=== PATIENT | male | born 1955 | race Caucasian/White ===

== ENCOUNTER 2017-06-21 19:12 | Inpatient (IN) | payer OTHER ==
[2017-06-21] MEDS ORDERED: NITROGLYCERIN SL TABS 0.4 MG TAB SUBLINGUAL STA (19:31)
[2017-06-21] MEDS ORDERED: ASPIRIN 81 MG PO STA ×2 (19:31→19:32)
[2017-06-21] MEDS ORDERED: NITROGLYCERIN SL TABS 0.4 MG TAB SUBLINGUAL PRN ×2 (19:31→21:09)
[2017-06-21] MEDS ORDERED: SODIUM CHLORIDE 0.9% 1,000 ML IV STA (19:31)
[2017-06-21] MEDS ORDERED: HEPARIN SODIUM,PORCINE 5,000 UNIT/ML 1 ML VIAL IV PRN (19:31)
[2017-06-21] MEDS ORDERED: HEPARIN SODIUM,PORCINE 5,000 UNIT/ML 1 ML VIAL IV ONE (19:31)
[2017-06-21] MEDS ORDERED: HEPARIN SODIUM,PORCINE 5,000 UNIT/ML 1 ML VIAL IV STA (19:33)
[2017-06-21] MEDS ORDERED: MORPHINE SULFATE/PF 10MG/10ML VL IVP STA (19:34)
[2017-06-21] MEDS ORDERED: ATORVASTATIN 80 MG TAB PO STA (19:34)
[2017-06-21] MEDS ORDERED: MORPHINE SULFATE/PF 10MG/10ML VL ONE (19:38)
--- NOTE | 2017-06-21 19:40 | ED ---
General Adult HPI - General Chief complaint: Chest Pain Stated complaint: Chest pain Time Seen by Provider: 06/21/17 19:31 Source: patient Mode of arrival: wheelchair Limitations: no limitations - Related Data Allergies Allergy/AdvReac Type Severity Reaction Status Date / Time No Known Allergies Allergy Verified 06/21/17 19:17 Review of Systems ROS Statement: Those systems with pertinent positive or pertinent negative responses have been documented in the HPI. ROS Other: All systems not noted in ROS Statement are negative. Past Medical History Past Medical History: Myocardial Infarction (CT) History of Any Multi-Drug Resistant Organisms: None Reported Past Surgical History: Heart Catheterization With Stent Additional Past Surgical History / Comment(s): back sx, hernia sx Past Psychological History: No Psychological Hx Reported Smoking Status: Current every day smoker Past Alcohol Use History: None Reported Past Drug Use History: None Reported General Exam Limitations: no limitations Course Vital Signs 06/21/17 06/21/17 06/21/17 19:13 19:29 19:33 Temperature 97.9 F Pulse Rate 67 65 62 Respiratory 18 18 20 Rate Blood Pressure 124/70 139/75 133/71 O2 Sat by Pulse 98 100 Oximetry Disposition Clinical Impression: ST elevation myocardial infarction (STEMI) Disposition: ADMITTED IP TO THIS HOSP Condition: Serious Referrals: Wanda Moody DO [Primary Care Provider] - 1-2 days
[2017-06-21 19:41] LABS: Basophils % (A) 0 %; Eosinophils # (A) 0.3 k/uL (0-0.7); Eosinophils % (A) 2 %; HCT 49.2 % (39.0-53.0); HGB 15.9 gm/dL (13.0-17.5); Lymphocytes # (A) 2.5 k/uL (1.0-4.8); Lymphocytes % (A) 17 %; MCH 29.4 pg (25.0-35.0); MCHC 32.4 g/dL (31.0-37.0); MCV 90.8 fL (80.0-100.0); Mean Platelet Volume 7.7; Monocytes # (A) 0.7 k/uL (0-1.0); Monocytes % (A) 5 %; Neutrophils # (A) 10.7 k/uL (1.3-7.7); Neutrophils % (A) 75 %; Platelet Count 455 k/uL (150-450); RBC 5.42 m/uL (4.30-5.90); RDW 12.7 % (11.5-15.5); WBC 14.3 k/uL (3.8-10.6)
[2017-06-21] MEDS ORDERED: HEPARIN SOD,PORK IN 0.45% NACL 25,000 UNIT in 0.45% NACL 1 500ML.BAG IV SCH (19:45)
[2017-06-21 19:47] LABS: Partial Thromboplastin Time 23.1 sec (22.0-30.0)
[2017-06-21] MEDS: MORPHINE SULFATE/PF 10MG/10ML VL IV PRN (19:48)
[2017-06-21] MEDS ORDERED: SODIUM CHLORIDE 0.9% 1,000 ML IV ONE (19:57)
[2017-06-21] MEDS ORDERED: IV FLUID CONTINUATION 900 ML IV ONE (20:00)
[2017-06-21 20:07] LABS: ALT 18 U/L (21-72); AST 27 U/L (17-59); Albumin 4.2 g/dL (3.5-5.0); Alkaline Phosphatase 87 U/L (38-126); Anion Gap 14 mmol/L; Blood Urea Nitrogen 13 mg/dL (9-20); Calcium 10.3 mg/dL (8.4-10.2); Carbon Dioxide 23 mmol/L (22-30); Chloride 105 mmol/L (98-107); Glucose 105 mg/dL (74-99); Potassium 4.1 mmol/L (3.5-5.1); Sodium 142 mmol/L (137-145); Total Bilirubin 0.5 mg/dL (0.2-1.3); Total Protein 6.9 g/dL (6.3-8.2)
[2017-06-21] MEDS ORDERED: MIDAZOLAM 2 MG/2 ML VIAL IV ONE (20:14)
[2017-06-21] MEDS ORDERED: MIDAZOLAM 2 MG/2 ML VIAL ONE (20:16)
[2017-06-21] MEDS ORDERED: LIDOCAINE 2% INJ 20 MG/ML (20 ML MDV) ONE (20:16)
[2017-06-21] MEDS ORDERED: fentaNYL (PF) 50 MCG/ML 2 ML AMP IV ONE (20:17)
[2017-06-21] MEDS ORDERED: LIDOCAINE 2% INJ 20 MG/ML SQ ONE (20:18)
[2017-06-21] MEDS ORDERED: fentaNYL (PF) 50 MCG/ML 2 ML AMP ONE (20:18)
[2017-06-21 20:19] LABS: Creatine Kinase MB 1.7 ng/mL (0.0-2.4); Troponin I 0.022 ng/mL (0.000-0.034)
--- NOTE | 2017-06-21 20:22 | XR ---
EXAMINATION: XR chest 1V portable DATE AND TIME: 06/21/2017 7:39 PM ORDERING PROVIDER: Nate Holt DO CLINICAL INDICATION: chest pain TECHNIQUE: Portable AP upright COMPARISON: None. DESCRIPTION: The lungs are clear. The pleural spaces are negative. The cardiac silhouette is not enlarged. The mediastinal and pleural silhouettes are unremarkable. The skeletal structures are intact without focal findings. The soft tissues are unremarkable. IMPRESSION: NO ACUTE PROCESS.
[2017-06-21] MEDS ORDERED: BIVALIRUDIN BOLUS 250 MG/50 ML IV ONE (20:27)
[2017-06-21] MEDS ORDERED: BIVALIRUDIN 250 MG in SODIUM CHLORIDE 0.9% 50 ML IV ONE (20:27)
[2017-06-21] MEDS ORDERED: NITROGLYCERIN 1000MCG/10ML SYRINGE INTRAARTER ONE (20:40)
[2017-06-21] MEDS ORDERED: IOHEXOL 350 MG/ML 125ML BOTTLE INJ ONE (20:50)
[2017-06-21] MEDS ORDERED: PRASUGREL 10 MG TAB PO ONE (20:51)
[2017-06-21] MEDS ORDERED: PRASUGREL 10 MG TAB ONE (20:53)
[2017-06-21] MEDS ORDERED: MAG HYDROX/AL HYDROX/SIMETH 30 ML CUP PO PRN (21:09)
[2017-06-21] MEDS ORDERED: ATROPINE SULFATE 0.1 MG/ML 10ML SYRINGE IV PRN (21:09)
[2017-06-21] MEDS ORDERED: ZOLPIDEM 5 MG TAB PO PRN (21:09)
[2017-06-21] MEDS ORDERED: RX INFO: IV CONTRAST WAS GIVEN 1 EACH MISC MISCELLANE PRN (21:09)
[2017-06-21 22:34] LABS: Glucose,Whole Blood 102 mg/dL (75-99)
[2017-06-21] MEDS: METOPROLOL TARTRATE 25 MG TAB PO SCH (23:13)
[2017-06-21] MEDS: SODIUM CHLORIDE 0.9% 1,000 ML IV SCH (23:16)
[2017-06-22 01:35] LABS: Magnesium 2.1 mg/dL (1.6-2.3)
[2017-06-22 02:14] LABS: Troponin I 0.234 ng/mL (0.000-0.034)
[2017-06-22] MEDS: MORPHINE SULFATE/PF 10MG/10ML VL IV PRN ×2 (04:32→07:50)
--- NOTE | 2017-06-22 05:22 | CC ---
CARDIAC CATHETERIZATION REPORT DATE OF SERVICE: 06/21/2017. PROCEDURE PERFORMED: 1. Left heart catheterization and coronary angiography. 2. PTCA and stenting of left anterior descending coronary artery performed in the setting of an acute ST-elevation UT with reperfusion accomplished in 56 minutes since arrival to the emergency room. PERFORMED BY: Dr. Afia Hercules. ANESTHESIA: Moderate conscious sedation time was 41 minutes with a combination of Versed and Benadryl and patient's oxygen saturation was monitored very closely and his EKG and vital signs were monitored closely. CLINICAL INFORMATION: Mr. Luis Astudillo is a patient with a known CAD with LAD PCI in 2002. 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 EKG revealed ST elevation anteriorly, advised prompt cardiac catheterization. Risks, benefits, options explained to the patient and was brought in for the procedure immediately. PROCEDURE NOTE: Under local anesthesia and strict aseptic precautions, a 6-Djiboutian introducer was placed in the right femoral artery. I started with the left standard Satish guide catheter and performed coronary angiography and noted that the LAD had a subtotal lesion in the midportion. There was a restenoses within the stented segment with haziness and thrombus and beyond the stent there was a 99% stenosis after a diagonal branch. The entire LAD was diffusely diseased throughout. I proceeded with PCI of the LAD first and then I performed a coronary angiography of the right coronary then checked LV pressures but did not perform an LV-gram. PCI DETAILS: Standard left Satish guide catheter was used to cannulate the left coronary artery. A whisper wire was used to cross the lesion. Predilatation was performed with a 2.5 caliber 20 mm long Trek balloon. I deployed a 23 mm long 3.0 caliber Xience stent at 11-12 atmospheres. Excellent angiographic result was achieved. Patient was completely pain free with significant improvement in EKG. I checked LV pressures and also did angiography of the right coronary artery. The sheath was taken out and Angio-Seal device used to secure hemostasis and he was sent to the room in a stable condition. Results were discussed with the patient and family members. CARDIAC CATHETERIZATION FINDINGS: Left ventricle end-diastolic pressure was about 14 mmHg and there was no significant gradient across aortic valve. CORONARY ANGIOGRAPHY FINDINGS: Right coronary artery: This is a large dominant vessel with a moderate to heavy calcification. The midportion is a 30% to 40% narrowing distally bifurcates into PDA and PLV, both of which have minor diffuse disease but no critical stenosis. RCA is a dominant vessel. Left main coronary artery: This is a short patent vessel, free of significant disease that immediately bifurcates into LAD and circumflex. Left main itself is small and disease-free. Left anterior descending coronary artery: This is a culprit vessel. At the site of previous stenting, there was 80% stenosis and immediately beyond the stent there was a 99% stenosis with thrombus. There is a good-sized diagonal branch that comes off which has some disease in the origin, but no significant stenosis. The entire LAD beyond the 95% stenosis is diffusely diseased, has multiple areas of narrowing of anywhere from 40- 55%. The vessel runs all the way to the apex, gives off septal branches. LAD, therefore is a culprit lesion with a 95% mid lesion and proximal LAD that was stented has a in-stent restenosis of 80-90%. Left posterior circumflex coronary artery: Left posterior circumflex coronary artery is technically nondominant vessel that gives off one obtuse marginal that runs laterally. This obtuse marginal has a long area of diffuse disease. The midportion of this disease segment is at least 70%. Beyond it also there is some narrowing. The vessel is of large distribution, but diffuse disease. The branch in the AV groove also has a diffuse disease throughout with multiple areas of anywhere from 50-70% narrowing throughout. The circumflex is therefore nondominant. Obtuse marginal has significant disease, may require staged intervention. Left ventriculogram was not performed. PCI was performed on the proximal and mid LAD with a 23 mm long 3.0 caliber drug- eluting Xience stent. Excellent angiographic result was achieved, but the distal and mid LAD beyond the stented segment has diffuse disease throughout. Results were discussed with the patient and family. He was sent to the room in a stable condition. MMODL / IJN: [id number] /
--- NOTE | 2017-06-22 05:28 | LTR ---
DATE OF SERVICE: 06/21/[address] Moody: Thank you for the opportunity to participate in the care of Mr. Astudillo. Please find enclosed my detailed cardiac cath report for your records. This gentleman presented with acute anterior MT and we accomplished reperfusion within 56 minutes. He has an excellent angiographic result, but he has diffusely diseased vessel. I am recommending that we continue aspirin and Plavix without interruption and smoking cessation and lipid-lowering strategies. Thank you for your referral and please call for questions. With kindest regards, Sincerely, JONAS / LAKISHA: [id number] /
--- NOTE | 2017-06-22 05:34 | CONS ---
CONSULTATION Mr. Astudillo is a 62-year-old gentleman a patient of Dr. Moody who saw Dr. Cody Brown 5 years ago. He is known to have a prior anterior UT in 2002, underwent stenting of LAD. The details are not available, but his stent card had seen of something that suggested possibly a bare metal stent of 3.5 caliber. However, this gentleman has not seen a threshing operator, has been smoking heavily at least 1 pack a day. Has stopped his statin medications. Takes an aspirin and Sheffield for back pain. He came into the hospital with chest pain that started almost 40 minutes before his arrival to the emergency room. Pain was in the chest, radiating to both upper extremities with diaphoresis, suggestive of acute ischemic syndrome. EKG revealed anterior ST elevation with precordial ST depression. A STEMI alert was called and I was notified. I saw the patient in the emergency room and noted that he was in distress, but hemodynamically stable. I explained to him that we will proceed with urgent cardiac cath and possible intervention. PAST MEDICAL HISTORY: 1. CAD, possible UT, details unclear stenting of LAD in . 2. Hypertension. 3. Hypercholesterolemia. 4. Smoking and possible COPD. ALLERGIES: None. MEDICATIONS: [place], morphine tablets, Zyrtec, aspirin 81 mg daily. SOCIAL HISTORY: Smokes more than 1 pack a day. Does not consume alcohol on a regular basis. PHYSICAL EXAMINATION: Blood pressure 130/80, pulse rate is about 68 per minute. HEENT: Unremarkable. Fundus was not examined by me. Neck is supple. There is no JVD. I do not hear a carotid bruit. Heart exam reveals S1, S2 without significant murmurs. Lungs reveal diminished air entry. Abdomen is soft, nontender. Lower extremities reveal palpable pulses. No edema. Central nervous system is normal. EKG revealed sinus mechanism with anterior ST elevation and precordial ST depression suggestive of an acute anterior ST-elevation UT. IMPRESSION: 1. Acute anterior ST-elevation myocardial infarction. 2. History of prior PCI of LAD, details unclear. 3. History of smoking. RECOMMENDATIONS: I recommended prompt cardiac cath and PCI and took him to the senior laboratory technician immediately. MMODL / IJN: [id number] /
[2017-06-22] MEDS ORDERED: ASPIRIN 325 MG TAB PO SCH (09:00)
[2017-06-22] MEDS: CLOPIDOGREL 75 MG TAB PO SCH (09:07)
[2017-06-22] MEDS: ASPIRIN 81 MG PO SCH (09:07)
[2017-06-22] MEDS: LISINOPRIL 5 MG TAB PO SCH (09:08)
[2017-06-22 09:15] LABS: Basophils % (A) 0 %; Eosinophils # (A) 0.2 k/uL (0-0.7); Eosinophils % (A) 2 %; HCT 43.6 % (39.0-53.0); HGB 14.2 gm/dL (13.0-17.5); Lymphocytes # (A) 1.8 k/uL (1.0-4.8); Lymphocytes % (A) 19 %; MCHC 32.6 g/dL (31.0-37.0); MCV 92.2 fL (80.0-100.0); Mean Platelet Volume 7.7; Monocytes # (A) 0.4 k/uL (0-1.0); Monocytes % (A) 4 %; Neutrophils # (A) 6.8 k/uL (1.3-7.7); Neutrophils % (A) 74 %; Platelet Count 330 k/uL (150-450); RBC 4.73 m/uL (4.30-5.90); RDW 12.9 % (11.5-15.5); WBC 9.2 k/uL (3.8-10.6)
[2017-06-22 09:33] LABS: Anion Gap 9 mmol/L; Blood Urea Nitrogen 11 mg/dL (9-20); Calcium 9.2 mg/dL (8.4-10.2); Carbon Dioxide 25 mmol/L (22-30); Chloride 109 mmol/L (98-107); Cholesterol 172 mg/dL (<200); Glucose 95 mg/dL (74-99); HDL Cholesterol 44 mg/dL (40-60); LDL Cholesterol,Calculated 116 mg/dL (0-99); Potassium 4.3 mmol/L (3.5-5.1); Sodium 143 mmol/L (137-145); Triglycerides 58 mg/dL (<150)
[2017-06-22 09:59] LABS: Creatine Kinase MB 2.7 ng/mL (0.0-2.4); Troponin I 0.212 ng/mL (0.000-0.034)
[2017-06-22 10:55] VITALS: BMI 24.0
--- NOTE | 2017-06-22 12:45 | ECHOF ---
Referral Reason:Acute Ant STEMI s/P LAD PCI MEASUREMENTS -------- HEIGHT: 182.9 cm WEIGHT: 78.0 kg BP: 122/64 IVSd: 0.9 cm (0.6 - 1.1) LVIDd: 3.6 cm (3.9 - 5.3) LVPWd: 1.0 cm (0.6 - 1.1) IVSs: 1.7 cm LVIDs: 1.6 cm LVPWs: 1.6 cm Ao Diam: 3.8 cm (2.0 - 3.7) AV Cusp: 2.3 cm (1.5 - 2.6) LA Diam: 4.3 cm (2.7 - 3.8) MV EXCURSION: 23.254 mm (> 18.000) MV EF SLOPE: 93 mm/s (70 - 150) EPSS: 0.2 cm MV E Miguel: 1.03 m/s MV DecT: 237 ms MV A Miguel: 0.73 m/s MV E/A Ratio: 1.42 AR PHT: 173 ms RAP: 5.00 mmHg RVSP: 13.69 mmHg FINDINGS -------- Sinus rhythm. Resting bradycardia (HR<60bpm). This was a technically adequate study. The left ventricular size is normal. Left ventricular wall thickness is normal. Overall left vent ricular systolic function is low-normal with, an EF between 50 - 55 %. The right ventricle is normal in size and function. The left atrium is mildly dilated. The right atrium is normal in size. Trace amount of aortic regurgitation. There is trace mitral regurgitation. Trace tricuspid regurgitation present. The right ventricular systolic pressure, as measured by Dopp ler, is 13.69mmHg. Pulmonic valve appears structurally normal. The aortic root is mildy dilated. The pericardium is normal. CONCLUSIONS -------- 1. Sinus rhythm. 2. Resting bradycardia (HR<60bpm). 3. This was a technically adequate study. 4. The left ventricular size is normal. 5. Left ventricular wall thickness is normal. 6. Overall left ventricular systolic function is low-normal with, an EF between 50 - 55 %. 7. The right ventricle is normal in size and function. 8. The left atrium is mildly dilated. 9. The right atrium is normal in size. 10. Trace amount of aortic regurgitation. 11. There is trace mitral regurgitation. 12. Trace tricuspid regurgitation present. 13. The right ventricular systolic pressure, as measured by Doppler, is 13.69mmHg. 14. Pulmonic valve appears structurally normal. 15. The aortic root is mildy dilated. 16. The pericardium is normal. WOOD GRINDER: Samreen Martini RDCS
--- NOTE | 2017-06-22 13:37 | P.HPIM ---
History of Present Illness 86-year-old pleasant gentleman came in with compensative chest pain found to have ST elevation microinfarction patient underwent cardiac catheterization and stenting of LAD patient had normal ejection fraction patient can use to smoke counseling regarding smoking cessation was provided and patient will be transferred out of ICU. Chest pain completely resolved denied any shortness of breath orthopnea or PND Review of Systems REVIEW OF SYSTEMS: CONSTITUTIONAL: No fever, no malaise, no fatigue. HEENT: No recent visual problems or hearing problems. Denied any sore throat. CARDIOVASCULAR: No c orthopnea, PND, no palpitations, no syncope. PULMONARY: No shortness of breath, no cough, no hemoptysis. GASTROINTESTINAL: No diarrhea, no nausea, no vomiting, no abdominal pain. Normoactive bowel sounds. NEUROLOGICAL: No headaches, no weakness, no numbness. HEMATOLOGICAL: Denies any bleeding or petechiae. GENITOURINARY: Denies any burning micturition, frequency, or urgency. MUSCULOSKELETAL/RHEUMATOLOGICAL: Denies any joint pain, swelling, or any muscle pain. ENDOCRINE: Denies any polyuria or polydipsia. The rest of the 14-point review of systems is negative. Past Medical History Past Medical History: Myocardial Infarction (DE) Last Myocardial Infarction Date:: 2002 History of Any Multi-Drug Resistant Organisms: None Reported Past Surgical History: Back Surgery, Heart Catheterization With Stent, Hernia Repair, Uterine Ablation Additional Past Surgical History / Comment(s): back sx, hernia sx Past Anesthesia/Blood Transfusion Reactions: No Reported Reaction Date of Last Stent Placement:: 2002 Past Psychological History: No Psychological Hx Reported Smoking Status: Current every day smoker Past Alcohol Use History: None Reported Past Drug Use History: None Reported - Past Family History Father Additional Family Medical History / Comment(s): CABG X3 Medications and Allergies Home Medications Medication Instructions Recorded Confirmed Type Aspirin EC [Ecotrin Low Dose] 81 mg PO DAILY PRN 06/21/17 06/21/17 History Cetirizine HCl [Zyrtec] 10 mg PO DAILY 06/21/17 06/21/17 History HYDROcodone/APAP 10-325MG [[place] 1 tab PO Q6H PRN 06/22/17 06/22/17 History 10-325] Morphine Sulfate ER [Ms Contin 30 mg PO Q8H 06/22/17 06/22/17 History 30Mg] Allergies Allergy/AdvReac Type Severity Reaction Status Date / Time No Known Allergies Allergy Verified 06/21/17 20:06 Physical Exam Vitals: Vital Signs Temp Pulse Resp BP Pulse Ox 06/22/17 13:00 58 L 21 140/62 96 06/22/17 12:30 47 L 16 114/73 95 06/22/17 12:00 98.6 F 38 L 25 H 112/57 96 06/22/17 11:00 39 L 12 109/58 95 06/22/17 10:00 33 L 19 146/53 95 06/22/17 09:00 46 L 135/64 96 06/22/17 08:00 98.7 F 43 L 13 138/72 97 06/22/17 07:00 38 L 14 148/67 98 06/22/17 06:00 47 L 15 122/64 97 06/22/17 05:30 45 L 13 124/61 97 06/22/17 05:00 41 L 11 L 119/65 98 06/22/17 04:30 44 L 14 128/70 98 06/22/17 04:00 98.4 F 38 L 15 148/58 98 06/22/17 03:30 41 L 13 125/62 98 06/22/17 03:00 43 L 12 144/60 98 06/22/17 02:45 38 L 13 119/61 99 06/22/17 02:30 42 L 11 L 131/56 98 06/22/17 02:15 44 L 12 104/60 98 06/22/17 02:00 42 L 11 L 125/59 98 06/22/17 01:45 43 L 14 113/59 97 06/22/17 01:30 42 L 15 112/54 97 06/22/17 01:15 43 L 14 113/56 98 06/22/17 01:00 49 L 17 99/63 98 06/22/17 00:45 43 L 13 109/59 98 06/22/17 00:40 44 L 15 109/59 98 06/22/17 00:30 42 L 28 H 106/53 98 06/22/17 00:20 41 L 11 L 101/56 98 06/22/17 00:10 44 L 10 L 101/56 98 06/22/17 00:00 41 L 13 113/57 98 06/21/17 23:50 49 L 12 101/54 96 06/21/17 23:40 42 L 10 L 101/54 96 06/21/17 23:30 45 L 16 104/58 95 06/21/17 23:20 46 L 15 116/57 97 06/21/17 23:10 48 L 17 116/57 97 06/21/17 23:02 46 L 14 99/58 97 06/21/17 23:00 47 L 12 99/58 97 06/21/17 22:50 53 L 17 97/54 97 06/21/17 22:40 98.6 F 53 L 26 H 97/54 97 06/21/17 20:05 97.2 F L 59 L 20 139/67 99 06/21/17 20:00 56 L 20 122/58 06/21/17 19:55 60 18 120/61 99 06/21/17 19:51 62 18 130/73 98 06/21/17 19:48 47 L 06/21/17 19:46 67 18 133/60 100 06/21/17 19:38 66 20 131/80 99 06/21/17 19:33 62 20 133/71 100 06/21/17 19:29 65 18 139/75 06/21/17 19:13 97.9 F 67 18 124/70 98 Intake and Output 06/21/17 06/22/17 06/22/17 22:59 06:59 14:59 Intake Total 191.13 675 450 Output Total 1225 825 Balance 191.13 -550 -375 Intake: IV 191.13 675 450 Sodium Chloride 0.9% 1, 675 450 000 ml @ 75 mls/hr IV . [id number] [facility] Rx#:[id number] Output: Urine 1225 825 Other: Voiding Method Urinal Toilet Urinal # Voids 0 1 Weight 78.4 kg 78.3 kg 78.3 kg PHYSICAL EXAMINATION: GENERAL: The patient is alert and oriented x3, not in any acute distress. Well developed, well nourished. HEENT: Pupils are round and equally reacting to light. EOMI. No scleral icterus. No conjunctival pallor. Normocephalic, atraumatic. No pharyngeal erythema. No thyromegaly. CARDIOVASCULAR: S1 and S2 present. No murmurs, rubs, or gallops. PULMONARY: Chest is clear to auscultation, no wheezing or crackles. ABDOMEN: Soft, nontender, nondistended, normoactive bowel sounds. No palpable organomegaly. MUSCULOSKELETAL: No joint swelling or deformity. EXTREMITIES: No cyanosis, clubbing, or pedal edema. NEUROLOGICAL: Gross neurological examination did not reveal any focal deficits. SKIN: No rashes. Results CBC & Chem 7: 06/22/17 08:50 06/22/17 08:50 Labs: Abnormal Lab Results - Last 24 Hours (Table) 06/21/17 06/21/17 06/21/17 Range/Units 19:30 19:30 19:30 WBC 14.3 H (3.8-10.6) k/uL Plt Count 455 H (150-450) k/uL Neutrophils # 10.7 H (1.3-7.7) k/uL Chloride (98-107) mmol/L Creatinine (0.66-1.25) mg/dL Glucose 105 H (74-99) mg/dL POC Glucose (mg/dL) (75-99) mg/dL Calcium 10.3 H (8.4-10.2) mg/dL ALT 18 L (21-72) U/L Total Creatine Kinase 184 H (55-170) U/L CK-MB (CK-2) (0.0-2.4) ng/mL Troponin I (0.000-0.034) ng/mL LDL Cholesterol, Calc (0-99) mg/dL 06/21/17 06/22/17 06/22/17 Range/Units 22:32 01:06 08:50 WBC (3.8-10.6) k/uL Plt Count (150-450) k/uL Neutrophils # (1.3-7.7) k/uL Chloride (98-107) mmol/L Creatinine (0.66-1.25) mg/dL Glucose (74-99) mg/dL POC Glucose (mg/dL) 102 H (75-99) mg/dL Calcium (8.4-10.2) mg/dL ALT (21-72) U/L Total Creatine Kinase (55-170) U/L CK-MB (CK-2) 2.7 H* (0.0-2.4) ng/mL Troponin I 0.234 H* 0.212 H* (0.000-0.034) ng/mL LDL Cholesterol, Calc (0-99) mg/dL 06/22/17 Range/Units 08:50 WBC (3.8-10.6) k/uL Plt Count (150-450) k/uL Neutrophils # (1.3-7.7) k/uL Chloride 109 H (98-107) mmol/L Creatinine 0.64 L (0.66-1.25) mg/dL Glucose (74-99) mg/dL POC Glucose (mg/dL) (75-99) mg/dL Calcium (8.4-10.2) mg/dL ALT (21-72) U/L Total Creatine Kinase (55-170) U/L CK-MB (CK-2) (0.0-2.4) ng/mL Troponin I (0.000-0.034) ng/mL LDL Cholesterol, Calc 116 H (0-99) mg/dL Thrombosis Risk Factor Assmnt - Choose All That Apply Any of the Below Risk Factors Present?: Yes Each Factor Represents 1 point: Acute DE, Medical pt on bed rest Each Risk Factor Represents 2 Points: Age 61-74 years Thrombosis Risk Factor Assessment Total Risk Factor Score: 4 Thrombosis Risk Factor Assessment Level: Moderate Risk Assessment and Plan Plan: -ST elevation microinfarction patient is status post cardiac catheterization and stenting of LAD. Patient is on dual antiplatelet therapy beta chari, statin. -Continue recording use: Counseling was provided. -Hyperlipidemia -Hypertension
--- NOTE | 2017-06-22 13:53 | PN ---
PROGRESS NOTE This is a 62-year-old gentleman who was admitted to hospital with acute anteroseptal myocardial infarction. Underwent cardiac catheterization and angioplasty by Dr. Victorina Hercules. Patient had stenting of the LAD. This morning he is doing well and is free of symptoms. Heart rate is slow, but he is in sinus rhythm. Blood pressure is normal. An echocardiogram on him shows normal LV systolic function with an ejection fraction of 50% to 55%. PHYSICAL EXAM: Heart rate is 46 beats per minute, blood pressure is 130/64, respiratory rate is 18. Chest exam reveals good air entry bilaterally. Heart exam reveals first and second heart sounds. No gallop. Abdomen is soft. Exam of extremities did not reveal edema. Peripheral pulses are felt. Labs showed that the troponin is 0.02, 0.2, 0.2, hemoglobin is normal at 14.2, creatinine is 0.6. Echo shows normal LV function. ASSESSMENT: Acute anterior wall myocardial infarction, status post catheterization and angioplasty of left anterior descending artery. PLAN: Patient is doing well. He will continue the aspirin, Lipitor, Plavix, Zestril, Lopressor. I will move him out to telemetry, ambulate him, hopefully can be discharged home over the next 1 to 2 days as his LV function is normal. I think we intervened in an expeditious way. JONAS / NELAN: [id number] /
[2017-06-22] MEDS: METOPROLOL TARTRATE 25 MG TAB PO SCH ×2 (14:07→20:39)
[2017-06-22] MEDS: MORPHINE SULFATE ER 30 MG TABLET PO SCH ×2 (14:09→22:28)
[2017-06-22] MEDS: HYDROcodone/APAP 10-325MG 1 EACH TAB PO PRN ×2 (14:12→20:39)
[2017-06-22] MEDS: SODIUM CHLORIDE 0.9% 1,000 ML IV SCH (17:22)
[2017-06-22] MEDS ORDERED: ATORVASTATIN 80 MG TAB PO SCH (21:00)
[2017-06-23] MEDS: HYDROcodone/APAP 10-325MG 1 EACH TAB PO PRN ×2 (03:27→09:25)
[2017-06-23 05:38] LABS: Basophils % (A) 0 %; Eosinophils # (A) 0.2 k/uL (0-0.7); Eosinophils % (A) 3 %; HCT 45.1 % (39.0-53.0); HGB 14.3 gm/dL (13.0-17.5); Lymphocytes # (A) 1.9 k/uL (1.0-4.8); Lymphocytes % (A) 22 %; MCH 29.2 pg (25.0-35.0); MCHC 31.6 g/dL (31.0-37.0); MCV 92.5 fL (80.0-100.0); Mean Platelet Volume 7.8; Monocytes # (A) 0.4 k/uL (0-1.0); Monocytes % (A) 5 %; Neutrophils # (A) 5.9 k/uL (1.3-7.7); Neutrophils % (A) 69 %; Platelet Count 313 k/uL (150-450); RBC 4.88 m/uL (4.30-5.90); RDW 12.9 % (11.5-15.5); WBC 8.5 k/uL (3.8-10.6)
[2017-06-23 05:51] LABS: Anion Gap 9 mmol/L; Blood Urea Nitrogen 12 mg/dL (9-20); Calcium 9.6 mg/dL (8.4-10.2); Carbon Dioxide 24 mmol/L (22-30); Chloride 106 mmol/L (98-107); Glucose 89 mg/dL (74-99); Potassium 4.2 mmol/L (3.5-5.1); Sodium 139 mmol/L (137-145)
[2017-06-23] MEDS: MORPHINE SULFATE ER 30 MG TABLET PO SCH ×2 (06:15→14:35)
[2017-06-23] MEDS: LISINOPRIL 5 MG TAB PO SCH (09:26)
[2017-06-23] MEDS: CLOPIDOGREL 75 MG TAB PO SCH (09:26)
[2017-06-23] MEDS: ASPIRIN 81 MG PO SCH (09:26)
[2017-06-23] MEDS: METOPROLOL TARTRATE 25 MG TAB PO SCH (09:26)
--- NOTE | 2017-06-23 12:23 | P.DS ---
Providers Date of admission: 06/21/17 19:31 Attending physician: Aureliano Garzon Consults: 06/21/17 19:31 Consult Physician Urgent Consulting Provider: Ike Hercules Consult Reason/Comments: stemi Do you want consulting provider notified?: Yes 06/21/17 21:10 Consult Physician Routine Consulting Provider: [facility] Consult Reason/Comments: Post Interventional patient Do you want consulting provider notified?: Already Contacted Primary care physician: Wanda Moody [facility] Course: Patient was admitted for acute myocardial infarction patient underwent cardiac catheterization and stenting of LAD. Please refer to my dictation of H&P from yesterday for further details and patient was mildly bradycardic because of which metoprolol dose is being decreased and patient is cleared for discharge from cardiology perspective and will be discharged today. PHYSICAL EXAMINATION: GENERAL: The patient is alert and oriented x3, not in any acute distress. Well developed, well nourished. HEENT: Pupils are round and equally reacting to light. EOMI. No scleral icterus. No conjunctival pallor. Normocephalic, atraumatic. No pharyngeal erythema. No thyromegaly. CARDIOVASCULAR: S1 and S2 present. No murmurs, rubs, or gallops. PULMONARY: Chest is clear to auscultation, no wheezing or crackles. ABDOMEN: Soft, nontender, nondistended, normoactive bowel sounds. No palpable organomegaly. MUSCULOSKELETAL: No joint swelling or deformity. EXTREMITIES: No cyanosis, clubbing, or pedal edema. NEUROLOGICAL: Gross neurological examination did not reveal any focal deficits. SKIN: No rashes. Patient Condition at Discharge: Serious Plan - Discharge Summary Discharge Rx Participant: Yes New Discharge Prescriptions: New Atorvastatin [Lipitor] 80 mg PO HS #30 tab Clopidogrel [Plavix] 75 mg PO DAILY #30 tab Lisinopril [Zestril] 5 mg PO DAILY #30 tab Metoprolol Tartrate [Lopressor] 12.5 mg PO BID #60 tab Nitroglycerin Sl Tabs [Nitrostat] 0.4 mg SUBLINGUAL Q5M PRN #60 tab PRN Reason: Chest Pain Continue Cetirizine HCl [Zyrtec] 10 mg PO DAILY Aspirin EC [Ecotrin Low Dose] 81 mg PO DAILY PRN PRN Reason: Pain Morphine Sulfate ER [Ms Contin] 30 mg PO Q8H HYDROcodone/APAP 10-325MG [[place] 10-325] 1 tab PO Q6H PRN PRN Reason: Pain Discharge Medication List Aspirin EC [Ecotrin Low Dose] 81 mg PO DAILY PRN 06/21/17 [History] Cetirizine HCl [Zyrtec] 10 mg PO DAILY 06/21/17 [History] HYDROcodone/APAP 10-325MG [[place] 10-325] 1 tab PO Q6H PRN 06/22/17 [History] Morphine Sulfate ER [Ms Contin] 30 mg PO Q8H 06/22/17 [History] Atorvastatin [Lipitor] 80 mg PO HS #30 tab 06/23/17 [Rx] Clopidogrel [Plavix] 75 mg PO DAILY #30 tab 06/23/17 [Rx] Lisinopril [Zestril] 5 mg PO DAILY #30 tab 06/23/17 [Rx] Metoprolol Tartrate [Lopressor] 12.5 mg PO BID #60 tab 06/23/17 [Rx] Nitroglycerin Sl Tabs [Nitrostat] 0.4 mg SUBLINGUAL Q5M PRN #60 tab 06/23/17 [Rx ] Follow up Appointment(s)/Referral(s): Wanda Moody DO [Primary Care Provider] - 3 Days Rick Deleon MD [STAFF PHYSICIAN] - 1 Week Discharge Disposition: HOME SELF-CARE
--- NOTE | 2017-06-23 14:04 | PN ---
PROGRESS NOTE Luis is 62-year-old gentleman who was admitted to hospital with myocardial infarction, underwent cardiac catheterization, angioplasty. He is doing well and is free of symptoms. His echo shows normal LV function. Troponin was only mildly elevated. He wishes to go home. He is stable, free of symptoms. Currently on aspirin, Lipitor, Plavix, Lopressor and sublingual nitroglycerin. PHYSICAL EXAM: Comfortable at rest, vital signs are heart rate is slow and has sinus bradycardia with heart rate of 42 beats per minute. Blood pressure is 170/79, O2 sat is 98%. There is no jugular venous distention. Chest exam reveals good air entry bilaterally. Heart exam reveals first and second heart sounds. No gallop. Abdomen is soft. Exam of extremities did not reveal any edema. Peripheral pulses are felt. LABS: Show that the hemoglobin is 14.3, platelet count is 313. Creatinine is 0.6. ASSESSMENT: 1. Acute anterior wall myocardial infarction status post catheterization and angioplasty. The patient is doing well. 2. Sinus bradycardia. PLAN: Patient is doing well. He will be discharged home. We will send him home on a very small dose of metoprolol. He will follow up with Dr. Hercules next week. MMODL / IJN: [id number] /
[2017-06-23 14:26] VITALS: BP 120/69; PULSE 52; RESP 18; TEMP 98
[2017-06-23] MEDS ORDERED: METOPROLOL TARTRATE 12.5 MG TAB PO SCH (21:00)
== END 2017-06-23 15:28 | disposition home or self-care (01) | DRG 247 ==
LOC: EC 19:12 → 6ICU 19:31
PROVIDERS: ADMIT Hospitalist; ATTEND Hospitalist
PROC: B2111ZZ Fluoroscopy of Multiple Coronary Arteries using Low Osmolar Contrast (ICD-10-PCS; principal; 2017-06-21 20:01)
PROC: 4A023N7 Measurement of Cardiac Sampling and Pressure, Left Heart, Percutaneous Approach (ICD-10-PCS; principal; 2017-06-21 20:01)
PROC: 027034Z Dilation of Coronary Artery, One Artery with Drug-eluting Intraluminal Device, Percutaneous Approach (ICD-10-PCS; principal; 2017-06-21 20:01)
DX: I21.09 ST elevation (STEMI) myocardial infarction involving other coronary artery of anterior wall (principal); T82.855A Stenosis of coronary artery stent, initial encounter; E78.00 Pure hypercholesterolemia, unspecified; E78.5 Hyperlipidemia, unspecified; F17.210 Nicotine dependence, cigarettes, uncomplicated; I10 Essential (primary) hypertension; I25.10 Atherosclerotic heart disease of native coronary artery without angina pectoris; I25.2 Old myocardial infarction; Y83.1 Surgical operation with implant of artificial internal device as the cause of abnormal reaction of the patient, or of later complication, without mention of misadventure at the time of the procedure; Z79.82 Long term (current) use of aspirin; Z79.891 Long term (current) use of opiate analgesic; Z79.899 Other long term (current) drug therapy; R00.1 Bradycardia, unspecified
CPT/HCPCS: 36415; 71045; 80048; 80053; 80061; 82550; 82553; 83690; 83735; 84484; 85025; 85610; 85730; 93005; 93306; 93458; 96374; 96375; 99285

== ENCOUNTER → 2017-07-03 | Outpatient (CLI) | payer OTHER ==
[2017-07-03 13:20] LABS: HCT 44.2 % (39.0-53.0); HGB 14.9 gm/dL (13.0-17.5); MCH 30.4 pg (25.0-35.0); MCHC 33.8 g/dL (31.0-37.0); MCV 89.8 fL (80.0-100.0); Mean Platelet Volume 7.4; Platelet Count 379 k/uL (150-450); RBC 4.92 m/uL (4.30-5.90); RDW 12.1 % (11.5-15.5); WBC 9.2 k/uL (3.8-10.6)
[2017-07-03 13:38] LABS: Anion Gap 14 mmol/L; Blood Urea Nitrogen 17 mg/dL (9-20); Carbon Dioxide 27 mmol/L (22-30); Chloride 99 mmol/L (98-107); Potassium 4.8 mmol/L (3.5-5.1); Sodium 140 mmol/L (137-145)
== END | disposition home or self-care (01) ==
LOC: LABWHC1 12:57
PROVIDERS: ATTEND Internal Medicine Interventional Cardiology
DX: Z01.812 Encounter for preprocedural laboratory examination (principal); I25.10 Atherosclerotic heart disease of native coronary artery without angina pectoris
CPT/HCPCS: 36415; 80051; 82565; 84520; 85027

== ENCOUNTER 2017-07-06 07:44 | Day surgery (SDC) | payer OTHER ==
[2017-07-03 14:54] VITALS: BMI 23.7
[~2017-07-06 07:44] MED LIST: ALPRAZolam 0.25 MG TAB PO PRN; ALPRAZolam 0.5 MG TAB PO PRN; ASPIRIN 325 MG TAB PO STA; NITROGLYCERIN SL TABS 0.4 MG TAB SUBLINGUAL PRN; SODIUM CHLORIDE 0.9% 1,000 ML in EMPTY BAG 1 BAG IV ONE
[2017-07-06] MEDS ORDERED: MIDAZOLAM 2 MG/2 ML VIAL ONE (08:26)
[2017-07-06] MEDS ORDERED: diphenhydrAMINE 50 MG/ML 1 ML VIAL ONE (08:26)
[2017-07-06] MEDS ORDERED: LIDOCAINE 2% INJ 20 MG/ML (20 ML MDV) ONE (08:26)
[2017-07-06] MEDS ORDERED: diphenhydrAMINE 50 MG/ML 1 ML VIAL IVP ONE (09:10)
[2017-07-06] MEDS ORDERED: MIDAZOLAM 2 MG/2 ML VIAL IVP ONE ×2 (09:48)
[2017-07-06] MEDS ORDERED: LIDOCAINE 2% INJ 20 MG/ML SQ ONE (09:49)
[2017-07-06] MEDS: NITROGLYCERIN 1000MCG/10ML SYRINGE INTRACORON ONE ×2 (09:57→10:12)
[2017-07-06] MEDS ORDERED: BIVALIRUDIN 250 MG in SODIUM CHLORIDE 0.9% 50 ML IV ONE (10:01)
[2017-07-06] MEDS ORDERED: BIVALIRUDIN BOLUS 250 MG/50 ML IV ONE (10:01)
[2017-07-06] MEDS ORDERED: IOPAMIDOL-370 100ML BTL INJ ONE ×2 (10:11→10:24)
[2017-07-06] MEDS ORDERED: CLOPIDOGREL 75 MG TAB ONE (10:25)
[2017-07-06] MEDS ORDERED: CLOPIDOGREL 75 MG TAB PO ONE (10:27)
[2017-07-06] MEDS ORDERED: MAG HYDROX/AL HYDROX/SIMETH 30 ML CUP PO PRN (10:35)
[2017-07-06] MEDS ORDERED: ATROPINE SULFATE 0.1 MG/ML 10ML SYRINGE IV PRN (10:35)
[2017-07-06] MEDS ORDERED: NITROGLYCERIN SL TABS 0.4 MG TAB SUBLINGUAL PRN (10:35)
[2017-07-06] MEDS ORDERED: ZOLPIDEM 5 MG TAB PO PRN (10:35)
[2017-07-06] MEDS ORDERED: RX INFO: IV CONTRAST WAS GIVEN 1 EACH MISC MISCELLANE PRN (10:35)
[2017-07-06] MEDS: SODIUM CHLORIDE 0.9% 1,000 ML IV SCH (10:40)
--- NOTE | 2017-07-06 11:03 | PTCA ---
PERCUTANEOUSTRANS CORORONARY ANGIOGRAPHY DATE OF SERVICE: 07/06/2017 PROCEDURE: PTCA and stenting of circumflex marginal coronary artery with a drug-eluting stent. Moderate conscious sedation time was about 45 minutes with a combination of Benadryl and Versed. Patient's oxygen saturation, vital signs and EKG were monitored closely. CLINICAL INFORMATION: Mr. Luis Astudillo is a 62-year-old gentleman with a known history of CAD. About 2 weeks ago, he presented with acute anterior ID, underwent and underwent stenting of LAD. He was advised staged intervention of circumflex, which had significant disease. RCA was dominant and relatively disease free. He was therefore brought in for the procedure electively after due discussion regarding risks, benefits and options. PROCEDURE NOTE: Under local anesthesia and strict aseptic precautions, a 6-Argent[place] introducer was placed in the right femoral artery. Using a standard left Satish guide catheter, I performed selective coronary angiography of the left system. I made sure the LAD was widely patent. I then performed intervention of the circumflex marginal. A run- through wire was used to cross the lesion, wire was kept distally. Primary stenting of the lesion in the circumflex marginal was performed initially with an 8 mm long 2.25 caliber Xience stent with excellent result. Proximal to it, there was an area of haziness and 60% to 70% stenosis and this was addressed with a 15 mm long 2.25 caliber Xience stent that was telescoped into the previous stent and both the stents were again dilated with the same 2.25 caliber balloon that came with the second stent. The patient had mild chest discomfort, but no EKG changes. He received Angiomax bolus and infusion. He also received additional 150 mg of Plavix and he was already on Plavix. Excellent angiographic result without complication was achieved. The sheath was sutured and patient sent to the room in a stable condition. Results were discussed with the patient and family. Excellent angiographic result without complication was achieved. The patient will be discharged home tomorrow hopefully if he remains stable. He has so far refrained from smoking and he was counseled again regarding the need to continue to refrain from smoking. No beta blockers since heart rate is in mid 40's. Explained to Patient in detail. MMODL / IJN: [id number] / MTDD
[2017-07-06] MEDS: MORPHINE SULFATE ER 30 MG TABLET PO SCH ×2 (14:47→20:05)
[2017-07-06] MEDS: HYDROcodone/APAP 10-325MG 1 EACH TAB PO PRN ×2 (15:26→22:04)
[2017-07-06 18:12] VITALS: RESP 16
[2017-07-06] MEDS ORDERED: ATORVASTATIN 80 MG TAB PO SCH (21:00)
[2017-07-07] MEDS: SODIUM CHLORIDE 0.9% 1,000 ML IV SCH (02:18)
[2017-07-07] MEDS: MORPHINE SULFATE ER 30 MG TABLET PO SCH (03:17)
[2017-07-07] MEDS: HYDROcodone/APAP 10-325MG 1 EACH TAB PO PRN ×2 (03:18→08:23)
[2017-07-07 06:23] LABS: Basophils % (A) 0 %; Eosinophils # (A) 0.3 k/uL (0-0.7); Eosinophils % (A) 3 %; HCT 44.3 % (39.0-53.0); HGB 14.2 gm/dL (13.0-17.5); Lymphocytes % (A) 26 %; MCH 29.5 pg (25.0-35.0); MCV 92.3 fL (80.0-100.0); Mean Platelet Volume 7.7; Monocytes # (A) 0.6 k/uL (0-1.0); Monocytes % (A) 7 %; Neutrophils # (A) 4.9 k/uL (1.3-7.7); Neutrophils % (A) 62 %; Platelet Count 325 k/uL (150-450); RDW 12.5 % (11.5-15.5)
[2017-07-07 06:32] LABS: Anion Gap 8 mmol/L; Blood Urea Nitrogen 13 mg/dL (9-20); Calcium 9.4 mg/dL (8.4-10.2); Carbon Dioxide 28 mmol/L (22-30); Chloride 105 mmol/L (98-107); Glucose 88 mg/dL (74-99); Potassium 4.8 mmol/L (3.5-5.1); Sodium 141 mmol/L (137-145)
[2017-07-07 08:22] VITALS: BP 124/71; PULSE 47; TEMP 97.4
--- NOTE | 2017-07-07 08:27 | DS ---
DISCHARGE SUMMARY DATE OF ADMISSION: 07/06/2017 DATE OF DISCHARGE: 07/07/2017. DIAGNOSES: 1. Unstable angina in a patient with known coronary artery disease. 2. Hypercholesterolemia. 3. History of smoking. Mr. Astudillo was admitted with acute anterior wall myocardial infarction on 06/21/2017, underwent stenting of a long lesion in the LAD with excellent angiographic result. He was discovered to have a significant circumflex lesion and was brought in for the procedure electively. On 07/06/2017, I performed coronary angiography and noted that the LAD that was stented on 06/21/2017 was widely patent. I performed stenting of the circumflex with 2 drug-eluting stents. Excellent angiographic result was achieved. Postprocedure course was uneventful. His right groin is clean and dry with a good pulse. He is fully aware of all his medications. I am not changing any except stopping metoprolol tartrate 12.5 mg daily that he was taking. He has resting bradycardia but fair chronotropic response and I will verify this in the office by doing a stress test to check chronotropic response, but since his heart rate is less than 50, we will discontinue beta-chari, increase activity and discharge him home today. Discharge instructions regarding activity, diet and medications were given. He has an appointment to see me on 07/10/17 at 11:30 am. PHYSICAL EXAMINATION: Physical examination revealed the blood pressure 120/80, pulse rate is about 48 per minute. S1, S2 heard normally. Lungs are clear. Abdomen is soft, nontender. Lower extremities reveal normal pulses. No edema. Right groin is tender, but there is no hematoma or bruit. The patient will be discharged today after he is up and about and I will see him in the office on 07/10/17. MMODL / IJN: [id number] /
[2017-07-07] MEDS ORDERED: NICOTINE 21MG/24HR PATCH TRANSDERM SCH (09:00)
[2017-07-07] MEDS ORDERED: ASPIRIN 81 MG PO SCH (09:00)
[2017-07-07] MEDS ORDERED: CLOPIDOGREL 75 MG TAB PO SCH (09:00)
[2017-07-07] MEDS ORDERED: LISINOPRIL 5 MG TAB PO SCH (09:00)
== END 2017-07-07 09:20 | disposition home or self-care (01) ==
LOC: CATHCVL 07:44 → 6SEL 10:24 → CATHCVL 07-07 09:20
PROVIDERS: ATTEND Internal Medicine Interventional Cardiology
DX: I25.110 Atherosclerotic heart disease of native coronary artery with unstable angina pectoris (principal); R00.1 Bradycardia, unspecified; I44.4 Left anterior fascicular block; Z95.5 Presence of coronary angioplasty implant and graft; I21.09 ST elevation (STEMI) myocardial infarction involving other coronary artery of anterior wall; E78.00 Pure hypercholesterolemia, unspecified; I10 Essential (primary) hypertension; Z82.49 Family history of ischemic heart disease and other diseases of the circulatory system; Z87.891 Personal history of nicotine dependence; Z79.02 Long term (current) use of antithrombotics/antiplatelets; Z79.891 Long term (current) use of opiate analgesic; Z79.899 Other long term (current) drug therapy
CPT/HCPCS: 80048; 85025; C9600; C1887; C1769 ×3; C1894; C1874; S4990; J2001; J2250; J1200; J0583; Q9967

== ENCOUNTER 2018-09-10 21:25 | Observation (INO) | payer OTHER ==
[2018-09-10] MEDS ORDERED: SODIUM CHLORIDE 0.9% 1,000 ML IV STA (21:39)
--- NOTE | 2018-09-10 21:40 | ED ---
Chest Pain HPI - General Chief Complaint: Chest Pain Stated Complaint: Chest Pain Time Seen by Provider: 09/10/18 21:38 Source: patient, RN notes reviewed, old records reviewed Mode of arrival: EMS Limitations: no limitations - History of Present Illness Initial Comments: This is a 63-year-old male the ER for evaluation. Patient presents today for evaluation regards to chest pain. Patient has history of [place] prior [place] CAD hypertension high cholesterol patient does have history of stents placed recently was in ER. No recent cardiac evaluation no prior history of chest pain requiring ER visit. No current fever cough or congestion MD Complaint: chest pain -: hour(s) Onset: during rest Pain Location: substernal, left chest Pain Radiation: none Severity: mild Severity scale (1-10): 2 Quality: tightness, heaviness Consistency: constant Improves With: nothing Worsens With: nothing Treatments Prior to Arrival: none - Related Data Home Medications Medication Instructions Recorded Confirmed Aspirin EC [Ecotrin Low Dose] 81 mg PO DAILY 06/21/17 09/11/18 HYDROcodone/APAP 10-325MG [[place] 1 tab PO Q6H PRN 06/22/17 09/11/18 10-325] Morphine Sulfate ER [Ms Contin] 30 mg PO Q8H 06/22/17 09/11/18 Lisinopril [Zestril] 5 mg PO HS 09/10/18 09/11/18 Previous Rx's Medication Instructions Recorded Atorvastatin [Lipitor] 80 mg PO HS #30 tab 06/23/17 Clopidogrel [Plavix] 75 mg PO DAILY #30 tab 06/23/17 Nitroglycerin Sl Tabs [Nitrostat] 0.4 mg SUBLINGUAL Q5M PRN #60 tab 06/23/17 Omeprazole [PriLOSEC] 40 mg PO AC-BRKFST #14 capsule. 09/11/18 Allergies Allergy/AdvReac Type Severity Reaction Status Date / Time No Known Allergies Allergy Verified 09/11/18 00:27 Review of Systems ROS Statement: Those systems with pertinent positive or pertinent negative responses have been documented in the HPI. ROS Other: All systems not noted in ROS Statement are negative. EKG Findings - EKG Comments: EKG Findings:: EKG shows sinus bradycardia rate of 54, DE 176, QRS 86, QTc 421 Past Medical History Past Medical History: Coronary Artery Disease (CAD), Hyperlipidemia, Hypertension, Myocardial Infarction ([place]) Additional Past Medical History / Comment(s): back pain, sciatica Last Myocardial Infarction Date:: 06/21/17 History of Any Multi-Drug Resistant Organisms: None Reported Past Surgical History: Back Surgery, Heart Catheterization With Stent, Hernia Repair Additional Past Surgical History / Comment(s): back sx, hernia sx, stent x2. STENTS CX 07/06/17 AND STENT TO LAD 06/14 Past Anesthesia/Blood Transfusion Reactions: No Reported Reaction Date of Last Stent Placement:: 06/21/17 Past Psychological History: No Psychological Hx Reported Smoking Status: Former smoker - Past Family History Father Additional Family Medical History / Comment(s): CABG X3 General Exam Limitations: no limitations General appearance: alert, in no apparent distress Head exam: Present: atraumatic, normocephalic, normal inspection Eye exam: Present: normal appearance, PERRL, EOMI. Absent: scleral icterus, conjunctival injection, periorbital swelling ENT exam: Present: normal exam, mucous membranes moist Neck exam: Present: normal inspection. Absent: tenderness, meningismus, lymphadenopathy Respiratory exam: Present: normal lung sounds bilaterally. Absent: respiratory distress, wheezes, rales, rhonchi, stridor Cardiovascular Exam: Present: regular rate, normal rhythm, normal heart sounds. Absent: systolic murmur, diastolic murmur, rubs, gallop, clicks GI/Abdominal exam: Present: soft, normal bowel sounds. Absent: distended, tenderness, guarding, rebound, rigid Extremities exam: Present: normal inspection, full ROM, normal capillary refill. Absent: tenderness, pedal edema, joint swelling, calf tenderness Back exam: Present: normal inspection Neurological exam: Present: alert, oriented X3, CN II-XII intact Psychiatric exam: Present: normal affect, normal mood Skin exam: Present: warm, dry, intact, normal color. Absent: rash Course Vital Signs 09/10/18 09/10/18 09/10/18 21:29 21:30 22:00 Temperature 98.4 F Pulse Rate 58 L 52 L Pulse Rate [ Right] Respiratory 18 Rate Blood Pressure 127/68 127/68 Blood Pressure [Right Arm] O2 Sat by Pulse 94 L 95 94 L Oximetry 09/10/18 09/11/18 09/11/18 22:30 00:00 00:09 Temperature 97.9 F Pulse Rate 49 L 48 L Pulse Rate [ 47 L Right] Respiratory 18 18 Rate Blood Pressure 120/69 126/76 Blood Pressure 167/80 [Right Arm] O2 Sat by Pulse 95 97 99 Oximetry - Reevaluation(s) Reevaluation #1: 09/10/18 21:43 Medical record is reviewed Chest Pain MDM - MDM 60 female the ER for evaluation of history of CAD coming in for chest pain. Will admit for chest pain observation cardiology evaluation Critical Care Time Critical Care Time: Yes Total Critical Care Time: 31 Disposition Clinical Impression: Chest pain Disposition: ADMITTED IP TO THIS HOSP Condition: Undetermined Is patient prescribed a controlled substance at d/c from ED?: No
[2018-09-10 21:54] LABS: Basophils # (A) 0.1 k/uL (0-0.2); Basophils % (A) 1 %; Eosinophils # (A) 0.3 k/uL (0-0.7); Eosinophils % (A) 4 %; HCT 44.4 % (39.0-53.0); HGB 14.4 gm/dL (13.0-17.5); Lymphocytes # (A) 1.5 k/uL (1.0-4.8); Lymphocytes % (A) 20 %; MCH 29.9 pg (25.0-35.0); MCHC 32.5 g/dL (31.0-37.0); MCV 91.8 fL (80.0-100.0); Mean Platelet Volume 7.6; Monocytes # (A) 0.4 k/uL (0-1.0); Monocytes % (A) 6 %; Neutrophils # (A) 5.1 k/uL (1.3-7.7); Neutrophils % (A) 68 %; Platelet Count 295 k/uL (150-450); RBC 4.83 m/uL (4.30-5.90); RDW 14.9 % (11.5-15.5); WBC 7.4 k/uL (3.8-10.6)
--- NOTE | 2018-09-10 21:59 | XR ---
EXAMINATION: XR chest 2V DATE AND TIME: 09/10/2018 9:50 PM CLINICAL INDICATION: PHH; Chest Pain TECHNIQUE: Departmental protocol COMPARISON: 06/21/2017 FINDINGS: The lungs are clear. The pleural spaces are negative. The cardiac silhouette is not enlarged. However, the thoracic aorta is more prominent on the current exam. This may be projectional, but may potentially be significant if pretest probability included aortic pathology. Skeletal structures and soft tissues are negative for acute findings. IMPRESSION: No definite acute process, but aortic discussion above.
[2018-09-10 22:07] LABS: Partial Thromboplastin Time 24.9 sec (22.0-30.0); Prothrombin Time 10.3 sec (9.0-12.0)
[2018-09-10 22:09] LABS: ALT 20 U/L (21-72); AST 25 U/L (17-59); African American GFR (CKD) >90 (>60 ml/min/1.73 sqM); Albumin 3.7 g/dL (3.5-5.0); Alkaline Phosphatase 71 U/L (38-126); Anion Gap 4 mmol/L; Blood Urea Nitrogen 12 mg/dL (9-20); Carbon Dioxide 25 mmol/L (22-30); Chloride 109 mmol/L (98-107); Glucose 88 mg/dL (74-99); Lipase 100 U/L (23-300); Magnesium 2.2 mg/dL (1.6-2.3); Potassium 4.8 mmol/L (3.5-5.1); Sodium 138 mmol/L (137-145); Total Bilirubin 0.8 mg/dL (0.2-1.3); Total Protein 6.1 g/dL (6.3-8.2)
[2018-09-10] MEDS ORDERED: HEPARIN SODIUM,PORCINE 5,000 UNIT/ML 1 ML VIAL IV ONE (23:35)
[2018-09-10] MEDS ORDERED: ASPIRIN 81 MG PO STA (23:35)
[2018-09-10] MEDS ORDERED: NITROGLYCERIN SL TABS 0.4 MG TAB SUBLINGUAL PRN (23:35)
[2018-09-10] MEDS ORDERED: HEPARIN SODIUM,PORCINE 5,000 UNIT/ML 1 ML VIAL IV PRN (23:35)
[2018-09-10] MEDS ORDERED: HEPARIN SOD,PORK IN 0.45% NACL 25,000 UNIT in 0.45% NACL 1 250ML.BAG IV SCH (23:45)
[2018-09-10] MEDS ORDERED: SODIUM CHLORIDE 0.9% 1,000 ML IV SCH (23:45)
[2018-09-11 00:28] VITALS: BMI 26.0
[2018-09-11] MEDS ORDERED: HYDROcodone/APAP 10-325MG 1 EACH TAB PO PRN (00:50)
[2018-09-11] MEDS ORDERED: ATORVASTATIN 80 MG TAB PO SCH ×2 (00:55→09:00)
[2018-09-11] MEDS ORDERED: LISINOPRIL 5 MG TAB PO SCH (01:00)
[2018-09-11] MEDS: MORPHINE SULFATE ER 30 MG TABLET PO SCH ×2 (01:44→08:16)
[2018-09-11 06:42] LABS: Basophils % (A) 0 %; Eosinophils # (A) 0.2 k/uL (0-0.7); Eosinophils % (A) 4 %; HCT 44.8 % (39.0-53.0); HGB 14.4 gm/dL (13.0-17.5); Lymphocytes # (A) 2.1 k/uL (1.0-4.8); Lymphocytes % (A) 35 %; MCH 30.2 pg (25.0-35.0); MCHC 32.3 g/dL (31.0-37.0); MCV 93.6 fL (80.0-100.0); Monocytes # (A) 0.3 k/uL (0-1.0); Monocytes % (A) 4 %; Neutrophils # (A) 3.2 k/uL (1.3-7.7); Neutrophils % (A) 54 %; Platelet Count 305 k/uL (150-450); RBC 4.78 m/uL (4.30-5.90); RDW 12.7 % (11.5-15.5); WBC 5.9 k/uL (3.8-10.6)
[2018-09-11 07:14] LABS: African American GFR (CKD) >90 (>60 ml/min/1.73 sqM); Anion Gap 3 mmol/L; Blood Urea Nitrogen 10 mg/dL (9-20); Calcium 8.9 mg/dL (8.4-10.2); Carbon Dioxide 28 mmol/L (22-30); Chloride 109 mmol/L (98-107); Cholesterol 116 mg/dL (<200); Glucose 94 mg/dL (74-99); HDL Cholesterol 43 mg/dL (40-60); LDL Cholesterol,Calculated 58 mg/dL (0-99); Potassium 4.2 mmol/L (3.5-5.1); Sodium 140 mmol/L (137-145); Triglycerides 75 mg/dL (<150)
[2018-09-11] MEDS ORDERED: METOPROLOL TARTRATE 25 MG TAB PO SCH (09:00)
[2018-09-11] MEDS ORDERED: ASPIRIN 325 MG TAB PO SCH (09:00)
--- NOTE | 2018-09-11 10:29 | P.CRDCN ---
History of Present Illness Consult date: 09/11/18 History of present illness: This is a 63-year-old gentleman with history of ischemic heart disease who was admitted to this hospital in June of last year with a antral microinfarction. Patient had stent placement of the LAD and followed by stent placement circumflex later that month of June in 2018. Patient has been stable since that time. However, patient came with complaints of having a tight feeling across the chest which is different than the pain he had when he had a heart attack. His EKGs did not reveal any acute changes. 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 Cardiac enzymes are negative. His cholesterol is well controlled. At this point there doesn't seem to be different acute coronary syndrome. We discussed the option of doing a cardiac catheterization or stress test. Patient is not inclined to have a cardiac catheterization at this time. Patient's activity to be increased as tolerated. Resume diet. He patient doesn't have any recurrence of chest pain, patient could be discharged home maybe tomorrow. However, patient is a recurrent of chest pain, cardiac catheterization may be considered. Further examination depend upon the clinical course. We'll also Will discontinue heparin. Review of Systems As per the chart Past Medical History Past Medical History: Coronary Artery Disease (CAD), Hyperlipidemia, Hypertension, Myocardial Infarction ([place]) Additional Past Medical History / Comment(s): back pain, sciatica Last Myocardial Infarction Date:: 06/21/17 History of Any Multi-Drug Resistant Organisms: None Reported Past Surgical History: Back Surgery, Heart Catheterization With Stent, Hernia Repair Additional Past Surgical History / Comment(s): back sx, hernia sx, stent x2. STENTS CX 07/06/17 AND STENT TO LAD 06/14 Past Anesthesia/Blood Transfusion Reactions: No Reported Reaction Date of Last Stent Placement:: 06/21/17 Past Psychological History: No Psychological Hx Reported Smoking Status: Former smoker Past Alcohol Use History: None Reported Additional Past Alcohol Use History / Comment(s): quit smoking 06/21/17, smoked 1ppd from age 16 Past Drug Use History: None Reported - Past Family History Father Additional Family Medical History / Comment(s): CABG X3 Medications and Allergies Home Medications Medication Instructions Recorded Confirmed Type Aspirin EC [Ecotrin Low Dose] 81 mg PO DAILY 06/21/17 09/11/18 History HYDROcodone/APAP 10-325MG [[place] 1 tab PO Q6H PRN 06/22/17 09/11/18 History 10-325] Morphine Sulfate ER [Ms Contin] 30 mg PO Q8H 06/22/17 09/11/18 History Atorvastatin [Lipitor] 80 mg PO HS #30 tab 06/23/17 09/11/18 Rx Clopidogrel [Plavix] 75 mg PO DAILY #30 tab 06/23/17 09/11/18 Rx Nitroglycerin Sl Tabs [Nitrostat] 0.4 mg SUBLINGUAL Q5M PRN #60 tab 06/23/17 09/11/18 Rx Lisinopril [Zestril] 5 mg PO HS 09/10/18 09/11/18 History Allergies Allergy/AdvReac Type Severity Reaction Status Date / Time No Known Allergies Allergy Verified 09/11/18 00:27 Physical Exam Vitals: Vital Signs Temp Pulse Pulse Pulse Resp BP BP 09/11/18 08:00 97.9 F 40 L 18 152/77 09/11/18 04:00 97.9 F 42 L 15 144/73 09/11/18 00:09 48 L 18 126/76 09/11/18 00:00 97.9 F 47 L 18 167/80 09/10/18 22:30 49 L 120/69 09/10/18 22:00 52 L 127/68 09/10/18 21:30 98.4 F 58 L 18 127/68 09/10/18 21:29 Pulse Ox 09/11/18 08:00 96 09/11/18 04:00 97 09/11/18 00:09 99 09/11/18 00:00 97 09/10/18 22:30 95 09/10/18 22:00 94 L 09/10/18 21:30 95 09/10/18 21:29 94 L Intake and Output 09/10/18 09/11/18 09/11/18 22:59 06:59 14:59 Other: Weight 84.822 kg GENERAL EXAM: Patient is alert and oriented and doesn't appear to be in any acute distress HEENT: Normocephalic. Normal reaction of pupils, equal size, normal range of extraocular motion. No erythema or exudates in the throat. NECK: No masses, no nuchal rigidity. CHEST: No chest wall deformity. LUNGS: [Equal air entry with no crackles or wheeze.] HEART: [S1 and S2 normal with no audible mumurs or gallops. Regular rhythm, femorals equal on both sides..] ABDOMEN: No hepatosplenomegaly, normal bowel sounds, no guarding or rigidity. SKIN: No rashes CENTRAL NERVOUS SYSTEM: No focal deficits. EXTREMITIES: [No cyanosis, clubbing or edema.] Results 09/11/18 05:55 09/11/18 05:55 Cardiac Enzymes 09/10/18 09/10/18 09/11/18 Range/Units 21:32 21:32 03:40 AST 25 (17-59) U/L Troponin I <0.012 <0.012 (0.000-0.034) ng/mL 09/11/18 Range/Units 09:20 AST (17-59) U/L Troponin I <0.012 (0.000-0.034) ng/mL Coagulation 09/10/18 09/11/18 Range/Units 21:32 05:55 PT 10.3 (9.0-12.0) sec APTT 24.9 38.6 H (22.0-30.0) sec Lipids 09/11/18 Range/Units 05:55 Triglycerides 75 (<150) mg/dL Cholesterol 116 (<200) mg/dL HDL Cholesterol 43 (40-60) mg/dL CBC 09/10/18 09/11/18 Range/Units 21:32 05:55 WBC 7.4 5.9 (3.8-10.6) k/uL RBC 4.83 4.78 (4.30-5.90) m/uL Hgb 14.4 14.4 (13.0-17.5) gm/dL Hct 44.4 44.8 (39.0-53.0) % Plt Count 295 305 (150-450) k/uL Comprehensive Metabolic Panel 09/10/18 09/11/18 Range/Units 21:32 05:55 Sodium 138 140 (137-145) mmol/L Potassium 4.8 4.2 (3.5-5.1) mmol/L Chloride 109 H 109 H (98-107) mmol/L Carbon Dioxide 25 28 (22-30) mmol/L BUN 12 10 (9-20) mg/dL Creatinine 0.71 0.68 (0.66-1.25) mg/dL Glucose 88 94 (74-99) mg/dL Calcium 9.0 8.9 (8.4-10.2) mg/dL AST 25 (17-59) U/L ALT 20 L (21-72) U/L Alkaline Phosphatase 71 (38-126) U/L Total Protein 6.1 L (6.3-8.2) g/dL Albumin 3.7 (3.5-5.0) g/dL Current Medications Generic Name Dose Route Start Last Admin Trade Name Freq PRN Reason Stop Dose Admin Hydrocodone Bitart/Acetaminophen 1 each 09/11/18 00:50 [place] 10 PO Q6H PRN Pain Aspirin 325 mg 09/11/18 09:00 09/11/18 08:17 Aspirin PO 325 mg DAILY VALEIRE Administration Atorvastatin Calcium 80 mg 09/11/18 00:55 09/11/18 01:43 Lipitor PO 80 mg HS VALERIE Administration Heparin Sodium (Porcine) 0 unit 09/10/18 23:35 Heparin IV Q6HR PRN Low PTT Protocol Heparin Sodium/Sodium Chloride 250 mls @ 10 mls/hr 09/10/18 23:45 09/11/18 00 :04 25,000 unit/ Sodium Chloride IV 11.789 units/kg/hr .Q24H VALERIE 10 mls/hr Administration Protocol 11.789 UNITS/KG/HR Sodium Chloride 1,000 mls @ 20 mls/hr 09/10/18 23:45 09/11/18 00:04 Saline 0.9% IV 20 mls/hr .Q24H VALERIE Administration Lisinopril 5 mg 09/11/18 01:00 09/11/18 01:44 Zestril PO 5 mg HS VALERIE Administration Morphine Sulfate 30 mg 09/11/18 01:00 09/11/18 08:16 Ms Contin PO 30 mg Q8HR VALERIE Administration Nitroglycerin 0.4 mg 09/10/18 23:35 Nitrostat SUBLINGUAL Q5M PRN Chest Pain Intake and Output 09/10/18 09/11/18 09/11/18 22:59 06:59 14:59 Other: Weight 84.822 kg 09/11/18 05:55 09/11/18 05:55 EKG Interpretations (text) Sinus rhythm with a left anterior fascicular block Assessment and Plan (1) History of myocardial infarction Current Visit: Yes Status: Acute Code(s): I25.2 - OLD MYOCARDIAL INFARCTION SNOMED Code(s): 468212596 (2) Chest pain Current Visit: Yes Status: Acute Code(s): R07.9 - CHEST PAIN, UNSPECIFIED SNOMED Code(s): 09986256 (3) Status post coronary artery stent placement Current Visit: Yes Status: Acute Code(s): Z95.5 - PRESENCE OF CORONARY ANGIOPLASTY IMPLANT AND GRAFT SNOMED Code(s): 031269407 Plan: Discontinue heparin. Increase activity. If remains stable, patient could be discharged home to be evaluated by stress test as an outpatient. Probably this could be done in the form of Lexiscan stress test
[2018-09-11 12:31] VITALS: BP 131/75; PULSE 52; RESP 16; TEMP 97.8
--- NOTE | 2018-09-11 14:03 | P.HPIM ---
History of Present Illness Patient is 63-year-old the male with history of known coronary artery disease stent placement LAD and circumflex last year came in with complaints of chest pain across the chest started after eating food services nausea denied any li ghtheadedness denied any shortness of breath associated with that denied and diaphoresis. Lasted for a few hours. Patient was evaluated by cardiology rule out a concurrent syndromes that cleared for discharge patient will undergo outpatient stress test. Review of Systems REVIEW OF SYSTEMS: CONSTITUTIONAL: No fever, no malaise, no fatigue. HEENT: No recent visual problems or hearing problems. Denied any sore throat. CARDIOVASCULAR: No orthopnea, PND, no palpitations, no syncope. PULMONARY: No shortness of breath, no cough, no hemoptysis. GASTROINTESTINAL: No diarrhea, NEUROLOGICAL: No headaches, no weakness, no numbness. HEMATOLOGICAL: Denies any bleeding or petechiae. GENITOURINARY: Denies any burning micturition, frequency, or urgency. MUSCULOSKELETAL/RHEUMATOLOGICAL: Denies any joint pain, swelling, or any muscle pain. ENDOCRINE: Denies any polyuria or polydipsia. The rest of the 14-point review of systems is negative. Past Medical History Past Medical History: Coronary Artery Disease (CAD), Hyperlipidemia, Hypertension, Myocardial Infarction ([place]) Additional Past Medical History / Comment(s): back pain, sciatica Last Myocardial Infarction Date:: 06/21/17 History of Any Multi-Drug Resistant Organisms: None Reported Past Surgical History: Back Surgery, Heart Catheterization With Stent, Hernia Repair Additional Past Surgical History / Comment(s): back sx, hernia sx, stent x2. STENTS CX 07/06/17 AND STENT TO LAD 06/14 Past Anesthesia/Blood Transfusion Reactions: No Reported Reaction Date of Last Stent Placement:: 06/21/17 Past Psychological History: No Psychological Hx Reported Smoking Status: Former smoker Past Alcohol Use History: None Reported Additional Past Alcohol Use History / Comment(s): quit smoking 06/21/17, smoked 1ppd from age 16 Past Drug Use History: None Reported - Past Family History Father Additional Family Medical History / Comment(s): CABG X3 Medications and Allergies Home Medications Medication Instructions Recorded Confirmed Type Aspirin EC [Ecotrin Low Dose] 81 mg PO DAILY 06/21/17 09/11/18 History HYDROcodone/APAP 10-325MG [[place] 1 tab PO Q6H PRN 06/22/17 09/11/18 History 10-325] Morphine Sulfate ER [Ms Contin] 30 mg PO Q8H 06/22/17 09/11/18 History Atorvastatin [Lipitor] 80 mg PO HS #30 tab 06/23/17 09/11/18 Rx Clopidogrel [Plavix] 75 mg PO DAILY #30 tab 06/23/17 09/11/18 Rx Nitroglycerin Sl Tabs [Nitrostat] 0.4 mg SUBLINGUAL Q5M PRN #60 tab 06/23/17 09/11/18 Rx Lisinopril [Zestril] 5 mg PO HS 09/10/18 09/11/18 History Omeprazole [PriLOSEC] 40 mg PO AC-BRKFST #14 capsule. 09/11/18 Rx Allergies Allergy/AdvReac Type Severity Reaction Status Date / Time No Known Allergies Allergy Verified 09/11/18 00:27 Physical Exam Vitals: Vital Signs Temp Pulse Pulse Pulse Resp BP BP 09/11/18 12:00 97.8 F 52 L 16 131/75 09/11/18 08:00 97.9 F 40 L 18 152/77 09/11/18 04:00 97.9 F 42 L 15 144/73 09/11/18 00:09 48 L 18 126/76 09/11/18 00:00 97.9 F 47 L 18 167/80 09/10/18 22:30 49 L 120/69 09/10/18 22:00 52 L 127/68 09/10/18 21:30 98.4 F 58 L 18 127/68 09/10/18 21:29 Pulse Ox 09/11/18 12:00 96 09/11/18 08:00 96 09/11/18 04:00 97 09/11/18 00:09 99 09/11/18 00:00 97 09/10/18 22:30 95 09/10/18 22:00 94 L 09/10/18 21:30 95 09/10/18 21:29 94 L Intake and Output 09/10/18 09/11/18 09/11/18 22:59 06:59 14:59 Other: Weight 84.822 kg PHYSICAL EXAMINATION: GENERAL: The patient is alert and oriented x3, not in any acute distress. Well developed, well nourished. HEENT: Pupils are round and equally reacting to light. EOMI. No scleral icterus. No conjunctival pallor. Normocephalic, atraumatic. No pharyngeal erythema. No thyromegaly. CARDIOVASCULAR: S1 and S2 present. No murmurs, rubs, or gallops. PULMONARY: Chest is clear to auscultation, no wheezing or crackles. ABDOMEN: Soft, nontender, nondistended, normoactive bowel sounds. No palpable organomegaly. MUSCULOSKELETAL: No joint swelling or deformity. EXTREMITIES: No cyanosis, clubbing, or pedal edema. NEUROLOGICAL: Gross neurological examination did not reveal any focal deficits. SKIN: No rashes. Results CBC & Chem 7: 09/11/18 05:55 09/11/18 05:55 Labs: Abnormal Lab Results - Last 24 Hours (Table) 09/10/18 09/11/18 09/11/18 Range/Units 21:32 05:55 05:55 APTT 38.6 H (22.0-30.0) sec Chloride 109 H 109 H (98-107) mmol/L ALT 20 L (21-72) U/L Total Protein 6.1 L (6.3-8.2) g/dL Thrombosis Risk Factor Assmnt - Choose All That Apply Any of the Below Risk Factors Present?: Yes Each Factor Represents 1 point: Obesity (BMI >25) Each Risk Factor Represents 2 Points: Age 61-74 years Thrombosis Risk Factor Assessment Total Risk Factor Score: 3 Thrombosis Risk Factor Assessment Level: Moderate Risk Assessment and Plan Plan: Chest pain: Ruled out a concurrent syndromes, unstable angina. Patient appears to have gastroesophageal reflux disease patient will be discharged on empiric Prilosec. -Coronary artery disease with stents in the past -Hypertension -Hyperlipidemia
--- NOTE | 2018-09-11 14:04 | P.DS ---
Providers Date of admission: 09/10/18 23:35 Attending physician: Aureliano Garzon Consults: 09/10/18 23:35 Consult Physician Urgent Consulting Provider: Bobby Poole Consult Reason/Comments: cp Do you want consulting provider notified?: Yes Primary care physician: Wanda Moody Hospital Course: Please refer to my HPI Patient Condition at Discharge: Undetermined Plan - Discharge Summary Discharge Rx Participant: No New Discharge Prescriptions: New Omeprazole [PriLOSEC] 40 mg PO AC-BRKFST #14 capsule.dr Thompson Action Aspirin EC [Ecotrin Low Dose] 81 mg PO DAILY Morphine Sulfate ER [Ms Contin] 30 mg PO Q8H HYDROcodone/APAP 10-325MG [[place] 10-325] 1 tab PO Q6H PRN PRN Reason: Pain Atorvastatin [Lipitor] 80 mg PO HS #30 tab Clopidogrel [Plavix] 75 mg PO DAILY #30 tab Nitroglycerin Sl Tabs [Nitrostat] 0.4 mg SUBLINGUAL Q5M PRN #60 tab PRN Reason: Chest Pain Lisinopril [Zestril] 5 mg PO HS Discharge Medication List Aspirin EC [Ecotrin Low Dose] 81 mg PO DAILY 06/21/17 [History] HYDROcodone/APAP 10-325MG [[place] 10-325] 1 tab PO Q6H PRN 06/22/17 [History] Morphine Sulfate ER [Ms Contin] 30 mg PO Q8H 06/22/17 [History] Atorvastatin [Lipitor] 80 mg PO HS #30 tab 06/23/17 [Rx] Clopidogrel [Plavix] 75 mg PO DAILY #30 tab 06/23/17 [Rx] Nitroglycerin Sl Tabs [Nitrostat] 0.4 mg SUBLINGUAL Q5M PRN #60 tab 06/23/17 [Rx] Lisinopril [Zestril] 5 mg PO HS 09/10/18 [History] Omeprazole [PriLOSEC] 40 mg PO AC-BRKFST #14 capsule. 09/11/18 [Rx] Follow up Appointment(s)/Referral(s): Ike Hercules MD [STAFF PHYSICIAN] - As Needed Wanda Moody DO [Primary Care Provider] - 3 Days Patient Instructions/Handouts: Chest Pain (ED) Discharge Disposition: HOME SELF-CARE
== END 2018-09-11 14:15 | disposition home or self-care (01) ==
LOC: EC 21:25 → 1SOBS 23:35
PROVIDERS: ADMIT Hospitalist; ATTEND Hospitalist
DX: R07.2 Precordial pain (principal); I25.2 Old myocardial infarction; I25.10 Atherosclerotic heart disease of native coronary artery without angina pectoris; I10 Essential (primary) hypertension; E78.00 Pure hypercholesterolemia, unspecified; E78.5 Hyperlipidemia, unspecified; M54.30 Sciatica, unspecified side; E66.9 Obesity, unspecified; Z68.26 Body mass index [BMI] 26.0-26.9, adult; Z87.891 Personal history of nicotine dependence; Z95.5 Presence of coronary angioplasty implant and graft; Z79.82 Long term (current) use of aspirin; Z79.899 Other long term (current) drug therapy; Z79.02 Long term (current) use of antithrombotics/antiplatelets; Z79.891 Long term (current) use of opiate analgesic
CPT/HCPCS: 96376; 96374; 99291; 36415; 93005; 83880; 80061; 80053; 80048; 83690; 83735; 84484 ×2; 85025 ×2; 85610; 85730 ×2; 71046; G0378 ×2; J1644 ×2

== ENCOUNTER → 2023-09-02 | Outpatient (CLI) | payer MEDICARE ==
--- NOTE | 2023-09-02 11:59 | CT ---
EXAMINATION TYPE: CT abdomen pelvis wo con CT DLP: 345.40 mGycm, Automated exposure control for dose reduction was used. DATE OF EXAM: 09/02/2023 9:39 AM COMPARISON: MRI liver 11/18/2011. CLINICAL INDICATION:Male, 68 years old with history of N20.0 CALCULUS OF KIDNEY R10.31 RIGHT LOWER QU ADRA; CALCULUS OF KIDNEY, RLQ PAIN. TECHNIQUE: Axial CT abdomen pelvis wo con;Sagittal and coronal reformats were created on a separate workstation. Contrast used: mL of , (none if empty) Oral contrast used: without Oral Contrast (none if empty) FINDINGS: LOWER CHEST: 10 mm right lower lobe pulmonary nodule. ABDOMEN LIVER: Unremarkable GALLBLADDER AND BILE DUCTS: Unremarkable. PANCREAS: Unremarkable. SPLEEN: Unremarkable. ADRENAL GLANDS: Unremarkable. KIDNEYS AND URETERS: Enlarged right kidney with irregular contour anteriorly. Masslike area near the renal sinus. 4 mm calculus in the renal sinus with mild dilation of the collecting system. Immediatel y abuts this masslike area. No left renal calculi are obstructive uropathy. PELVIS BLADDER: Unremarkable REPRODUCTIVE: Unremarkable. ABDOMEN & PELVIS STOMACH AND BOWEL: No evidence of bowel obstruction. PERITONEUM/RETROPERITONEUM: No evidence of pneumoperitoneum or free fluid. VASCULATURE: Mild atherosclerotic calcifications are present throughout the abdominal aorta and its b ranches. No evidence of aortic aneurysm. MUSCULOSKELETAL: No acute osseous abnormalities. Mild disc degeneration changes are present throughou t the thoracolumbar spine. LYMPH NODES: No gross evidence for lymphadenopathy. SOFT TISSUE/ABDOMINAL WALL: Right fat containing inguinal hernia. IMPRESSION: 1. Enlarged right kidney with a masslike area medially and posteriorly. Further evaluation with MRI renal mass protocol recommended recommended to exclude mass. Findings new from 2011. 2. Right renal pelvis calcification possibly obstructing some of the calyces. Ultimately this was fu rther evaluated with MRI. 3. 10 mm right lower lobe pulmonary nodule, PET/CTs recommended and/or short-term follow-up in 3 mon ths per Fleischner Society pulmonary nodule recommendations.
== END | disposition home or self-care (01) ==
LOC: RADCTMAIN 09:16
PROVIDERS: ATTEND Family Medicine
DX: N20.0 Calculus of kidney (principal); N28.81 Hypertrophy of kidney; R91.1 Solitary pulmonary nodule
CPT/HCPCS: 74176

== ENCOUNTER → 2023-09-29 | Outpatient (CLI) | payer MEDICARE ==
[2023-09-29 17:54] LABS: African American GFR (CKD) >90 (>60 ml/min/1.73 sqM); Blood Urea Nitrogen 16 mg/dL (9-20); Non-African American GFR(CKD) >90 (>60 ml/min/1.73 sqM)
--- NOTE | 2023-09-29 21:04 | CT ---
EXAMINATION TYPE: CT chest wo/w con DATE OF EXAM: 09/29/2023 COMPARISON: Radiographs 09/10/[address] abdomen 09/02/2023 HISTORY: 68-year-old male R91.1 nodules TECHNIQUE: Contiguous axial scanning of the chest before and after the administration of 80cc mL of I sovue 370. Coronal/sagittal reconstructions performed. CT DLP: 536.1mGycm. Automatic exposure control utilized for a dose reduction. FINDINGS: Heart is normal size without pericardial effusion. Three-vessel coronary calcifications are present. Ectatic ascending aorta 3.8 cm. Bovine configuration to the aortic arch. Mild atherosclerotic calcifi cations throughout. Ectatic distal descending thoracic aorta to 2.9 cm. Possible left hilar lymph node measuring 1.8 cm, axial image 33. Otherwise, no thoracic lymphadenopat hy by CT size criteria. There is mild to moderate emphysematous change. Minimal biapical pleural parenchymal scarring. No con solidation or pleural effusion. 6 mm right mid lung pulmonary nodule, axial image 39. 4 mm right middle lobe pulmonary nodule, axial images 49. 1.1 cm pulmonary nodule posterior right base. 5 mm inferior lingular pulmonary nodule, axial image 51. 6 mm posterior left lower lobe pulmonary nodule, axial image 46. 4 mm posterior left lower lobe pulmonary nodule, axial image 37 Visualized upper abdomen shows partially visualized heterogeneous mass of the medial right kidney. Th ere appears to be a satellite lesion in the medial right perinephric space measuring 2.9 cm which was not well identified on the noncontrast study. Bones: No osseous destructive process. IMPRESSION: 1. COPD with mild to moderate emphysema. 2. Scattered bilateral pulmonary nodules measuring up to 1.1 cm. Findings suspicious for metastatic d isease. 3. Possible metastatic left hilar lymph node measuring 1.8 cm. 4. Partially visualized known medial right kidney mass. A satellite lesion in the medial right perine phric space measures 2.9 cm and was not well delineated on the patient's recent noncontrast CT abdome n.
--- NOTE | 2023-09-30 10:06 | MR ---
EXAMINATION TYPE: MR kidney wo/w con DATE OF EXAM: 09/29/2023 7:04 PM CLINICAL INDICATION:Male, 68 years old with history of D41.01 UNCERTAIN BEHAVE RT KID,; PHH, Abnormal CT, neoplasm of uncertain behavior of right kidney COMPARISON: MRI lumbar spine 09/29/2023, CT 09/02/2023 TECHNIQUE: Multiplanar multi-sequence imaging was performed without contrast. Post contrast imaging was performed. Post IV contrast subtraction images were also submitted for review. IV Contrast: 7 cc Gadavist FINDINGS: LOWER CHEST: Right lower lung pulmonary nodule is again present measuring up to 10 mm ABDOMEN Liver: No evidence for cirrhosis. Signal dropout on chemical shift of phase imaging. Scattered high T 2 signal cysts are seen throughout the liver. Gallbladder and Bile ducts: No evidence for ductal dilation, or biliary stricture or evidence of chol edocholithiasis. The gallbladder is within normal limits. Pancreas: No ductal dilation. No evidence for solid mass. Spleen: Normal for size. Adrenal glands: Unremarkable. Kidneys: Right renal mass measuring at least 68 x 45 mm in the medial upper aspect of the right kidne y with irregular margins with part cystic and partially solid components. There are enhancing deposit s outside the kidney near this tumor. Example includes series 901 image 21 measuring 24 x 18 mm. No evidence for obstructive uropathy. No left renal mass visualized. No obstructive uropathy. Stomach and Bowel: No evidence for bowel wall thickening or evidence for obstruction. Retroperitoneum/Peritoneum: No evidence of pneumoperitoneum or free fluid. Vasculature: No aortic aneurysm. Musculoskeletal: The osseous structures appear intact. Lymph Nodes: No gross evidence for lymphadenopathy. Abdominal wall: Unremarkable. IMPRESSION: 1. Right renal mass measuring up to 68 x 45 mm most compatible with renal cell carcinoma. Multiple t umor deposits are seen around this mass. 2. Right lower lung pulmonary nodule concerning for metastatic disease. 3. Hepatic steatosis. 4. Simple appearing hepatic cysts.
== END | disposition home or self-care (01) ==
LOC: RADCTMAIN 16:59
PROVIDERS: ATTEND Family Medicine
DX: D41.01 Neoplasm of uncertain behavior of right kidney (principal); R91.1 Solitary pulmonary nodule; J43.9 Emphysema, unspecified; J44.9 Chronic obstructive pulmonary disease, unspecified; N28.89 Other specified disorders of kidney and ureter
CPT/HCPCS: 82565; 84520; 71270; 36415; 74183; A9585; Q9967

== ENCOUNTER → 2023-12-03 | Outpatient (CLI) | payer MEDICARE ==
[2023-12-03 18:25] LABS: Basophils # (A) 0.03 X 10*3/uL (0.00-0.10); Basophils % (A) 0.4 %; Eosinophils # (A) 0.19 X 10*3/uL (0.04-0.35); Eosinophils % (A) 2.3 %; HCT 48.1 % (39.6-50.0); HGB 14.7 g/dL (13.0-17.0); Lymphocytes # (A) 1.65 X 10*3/uL (0.90-5.00); Lymphocytes % (A) 20.2 %; MCH 23.3 pg (27.0-32.0); MCHC 30.6 g/dL (32.0-37.0); MCV 76.2 FL (80.0-97.0); Mean Platelet Volume 9.4 FL (9.5-12.2); Monocytes # (A) 0.77 X 10*3/uL (0.20-1.00); Monocytes % (A) 9.4 %; NRBC Per 100 WBC 0 X 10*3/uL (0.00-0.01); Neutrophils # (A) 5.51 X 10*3/uL (1.80-7.70); Neutrophils % (A) 67.3 %; Platelet Count 465 X 10*3/uL (140-440); RBC 6.31 X 10*6/uL (4.40-5.60); RDW 18.1 % (11.5-14.5); WBC 8.18 X 10*3/uL (4.50-10.00)
[2023-12-03 18:37] LABS: BUN/Creat Ratio 14.62 Ratio (12.00-20.00); Blood Urea Nitrogen 11.7 mg/dL (9.0-27.0); Calcium 9.7 mg/dL (8.7-10.3); Carbon Dioxide 23.6 mmol/L (21.6-31.8); Chloride 98 mmol/L (96-109); Glucose 111 mg/dL (70-110); Potassium 4.4 mmol/L (3.5-5.5); Sodium 133 mmol/L (135-145)
== END | disposition home or self-care (01) ==
LOC: LABPAT 14:16
PROVIDERS: ATTEND Urology
DX: Z01.818 Encounter for other preprocedural examination
CPT/HCPCS: 36415; 80048; 85025; 86850; 86900; 86901

== ENCOUNTER 2023-12-14 10:27 | Inpatient (IN) | payer MEDICARE ==
[2023-12-08 15:12] VITALS: BMI 23.0
--- NOTE | 2023-12-14 10:41 | P.HPIHPCON ---
History of Present Illness H&P Date: 12/14/23 Chief Complaint: right renal mass this is a 68-year-old male with history of a 6.8 cm right-sided renal mass, had suspicious finding of possible metastatic disease into the lung, PET scan revealed no evidence of metastatic disease, was evaluated by pulmonology and oncology which deemed the nodules are too small to biopsy. Discussed with him at this time I cannot completely rule out metastatic disease but there is potential that those nodules could be benign. Option of a right sided radical nephrectomy was discussed with him and his in detail, aware of the risk which includes but not limited to bleeding, infection, injury to nearby organs. Discussed also with him the risk of needing hemodialysis in the short and long- term. Discussed with him if he does indeed have metastatic disease and this will not be a curative surgery, discussed even if he does not have metastatic disease there is potential of cancer recurrence and potential of the need for additional treatments. Risk of anesthesia was discussed with him in detail, aware he is aware he is at a higher risk of medical complication given his "heart disease and COPD. He understood all the risk and agreed to proceed with right-sided radical nephrectomy Consent for Procedure: I have explained the operation/procedure to the patient, including the risks, benefits, side effects, alternative therapies (including not receiving the proposed treatment or service), the likelihood of the patient achieving his/her goals, and potential recuperation problems for the procedure/sedation/analgesia, as well as any blood products, if indicated. I also explained to the patient the risks, benefits and side effects of the alternatives, as well as the risks related to not receiving the proposed procedure, care, treatment, or services. Past Medical History Past Medical History: Coronary Artery Disease (CAD), COPD, Hyperlipidemia, Hypertension, Myocardial Infarction (VT) Additional Past Medical History / Comment(s): rt renal mass, had PET scan, chronic back pain, sciatica due to injury to back years ago,prosthetic left eye Last Myocardial Infarction Date:: 2017 History of Any Multi-Drug Resistant Organisms: None Reported Past Surgical History: Back Surgery, Heart Catheterization With Stent, Hernia Repair Additional Past Surgical History / Comment(s): back sx, rt inguinal hernia sx, stent x3. STENTS CX 07/06/17 AND STENT TO LAD 06/14 Past Anesthesia/Blood Transfusion Reactions: No Reported Reaction Additional Past Anesthesia/Blood Transfusion Reaction / Comment(s): no hx blood transfusion Date of Last Stent Placement:: 2017 Smoking Status: Current every day smoker - Past Family History Father Additional Family Medical History / Comment(s): CABG X3 Medications and Allergies Home Medications Medication Instructions Recorded Confirmed Type Aspirin EC [Ecotrin Low Dose] 81 mg PO DAILY 06/21/17 12/08/23 History HYDROcodone/APAP 10-325MG [[place] 1 tab PO Q6H PRN 06/22/17 12/08/23 History 10-325] Morphine Sulfate ER [Ms Contin] 30 mg PO Q8H 06/22/17 12/08/23 History Clopidogrel [Plavix] 75 mg PO DAILY #30 tab 06/23/17 12/08/23 Rx Nitroglycerin Sl Tabs [Nitrostat] 0.4 mg SUBLINGUAL Q5M PRN #60 tab 06/23/17 12/08/23 Rx lisinopriL [Zestril] 10 mg PO HS 09/10/18 12/08/23 History Atorvastatin [Lipitor] 40 mg PO HS 12/08/23 12/08/23 History Cetirizine HCl [Zyrtec] 10 mg PO DAILY 12/08/23 12/08/23 History Fluticasone Nasal [place] [Flonase 2 spray EA NOSTRIL DAILY 12/08/23 12/08/23 History Nasal [place]] Pantoprazole [Protonix] 40 mg PO QAM 12/08/23 12/08/23 History Tamsulosin HCl [Flomax] 0.4 mg PO QAM 12/08/23 12/08/23 History Allergies Allergy/AdvReac Type Severity Reaction Status Date / Time No Known Allergies Allergy Verified 12/08/23 14:53 Surgical - Exam - General no distress, no pain - Eyes normal ocular movement, no pale - ENT normal nares, normal mucosa - Respiratory normal expansion, normal respiratory effort Assessment and Plan Assessment: OR of right sided radical nephrectomy
[2023-12-14] MEDS: LACTATED RINGERS 1,000 ML IV SCH (11:11)
[2023-12-14] MEDS: DEXAMETHASONE SOD PHOSPHATE 4 MG/ML 1 ML VIAL IV ONE (11:11)
[2023-12-14] MEDS: ONDANSETRON 4 MG/2 ML VIAL IVP ONE (11:11)
[2023-12-14] MEDS ORDERED: NALOXONE 0.4 MG/ML 1 ML VIAL IV PRN ×2 (11:17→12:51)
[2023-12-14] MEDS ORDERED: ONDANSETRON 4 MG/2 ML VIAL IVP PRN ×2 (11:17→12:53)
[2023-12-14] MEDS ORDERED: NALBUPHINE 10 MG/ML (10 ML MDV) IV PRN (11:17)
[2023-12-14] MEDS: MIDAZOLAM 2 MG/2 ML VIAL IVP ONE (11:23)
[2023-12-14] MEDS ORDERED: ROCURONIUM 10 MG/ML (5 ML VIAL) IV ONE (12:50)
[2023-12-14] MEDS ORDERED: ePHEDrine 50 MG/ML 1 ML VIAL ONE (12:50)
[2023-12-14] MEDS ORDERED: fentaNYL (PF) 50 MCG/ML 2 ML AMP ONE (12:50)
[2023-12-14] MEDS ORDERED: MIDAZOLAM 2 MG/2 ML VIAL ONE (12:50)
[2023-12-14] MEDS ORDERED: PROPOFOL 10 MG/ML 20 ML VIAL IV ONE (12:50)
[2023-12-14] MEDS ORDERED: SUCCINYLCHOLINE CHLORIDE 200 MG/10 ML VIAL IV ONE (12:50)
[2023-12-14] MEDS ORDERED: GLYCOPYRROLATE 0.2 MG/ML 2 ML VIAL ONE (12:50)
[2023-12-14] MEDS ORDERED: NITROGLYCERIN SL TABS 0.4 MG TAB SUBLINGUAL PRN (12:50)
[2023-12-14] MEDS ORDERED: NEOSTIGMINE 1 MG/ML 10 ML VIAL ONE (12:50)
[2023-12-14] MEDS ORDERED: LIDOCAINE 1% INJ 10MG/ML (20 ML MDV) ONE (12:50)
[2023-12-14] MEDS ORDERED: HYDROmorphone (PF) 1 MG/ML ONE (12:50)
[2023-12-14] MEDS: IV FLUID CONTINUATION 900 ML IV ONE (13:01)
[2023-12-14] MEDS: IV FLUID CONTINUATION 500 ML IV ONE (13:02)
[2023-12-14] MEDS: LACTATED RINGERS 1,000 ML IV ONE (13:41)
--- NOTE | 2023-12-14 13:49 | P.ANPRN ---
Procedure Note - Anesthesia - Epidural/Spinal Epidural Time Out Performed: Yes Date of Procedure: 12/14/23 Procedure Start Time: 11:21 Procedure Stop Time: 11:35 Location of Patient: PreOp Indication: Acute Post-Operative Pain, Requested by Surgeon Sedation Type: Sedate with meaningful contact maintained Preparation: Sterile Prep Position: Sitting Catheter: Indwelling Needle Guage: 18 Injectate: 1.5% lidocaine with epi - negative test dose Blood Aspirated: No Pain Paresthesia on Injection Noted: No Events: Uneventful and Well Tolerated
[2023-12-14] MEDS: HYDROmorphone 0.5 MG/0.5 ML SYRINGE IVP PRN (16:21)
[2023-12-14] MEDS: ROPIVACAINE 250 MG, fentaNYL (PF) 625 MCG in SODIUM CHLORIDE 0.9% 188 ML EPIDURAL PRN (16:32)
[2023-12-14 16:37] LABS: Anisocytosis Slight; Basophils % (A) 0 %; Eosinophils % (A) 0 %; HCT 37.9 % (39.0-53.0); HGB 11.4 gm/dL (13.0-17.5); Hypochromasia Marked; Lymphocytes # (A) 0.6 k/uL (1.0-4.8); Lymphocytes % (A) 3 %; MCH 23.8 pg (25.0-35.0); MCV 79.2 fL (80.0-100.0); Microcytosis Slight; Monocytes # (A) 0.4 k/uL (0-1.0); Monocytes % (A) 2 %; Neutrophils # (A) 17.6 k/uL (1.3-7.7); Neutrophils % (A) 94 %; Platelet Count 322 k/uL (150-450); RBC 4.79 m/uL (4.30-5.90); RDW 16.3 % (11.5-15.5); WBC 18.7 k/uL (3.8-10.6)
[2023-12-14] MEDS: HYDROmorphone 1 MG/ML 1 ML SYRINGE IVP STA ×2 (16:50→17:19)
[2023-12-14] MEDS: fentaNYL (PF) 50 MCG/ML 2 ML AMP IVP PRN (18:06)
[2023-12-14] MEDS: IV FLUID CONTINUATION 1,000 ML IV ONE (18:11)
[2023-12-14] MEDS: D5-0.45% NACL WITH KCL 20MEQ/L 1,000 ML IV SCH (18:57)
[2023-12-14] MEDS: HYDROmorphone PCA 10 MG/50 ML BAG IV PRN (18:59)
[2023-12-14] MEDS: SODIUM CHLORIDE 0.9% 1,000 ML IV SCH (19:55)
[2023-12-14] MEDS: HEPARIN SODIUM,PORCINE 5,000 UNIT/ML 1 ML VIAL SQ SCH (19:56)
[2023-12-14] MEDS: lisinopriL 10 MG TAB PO SCH (21:58)
[2023-12-14] MEDS: ATORVASTATIN 40 MG TAB PO SCH (21:58)
[2023-12-14] MEDS: MORPHINE SULFATE ER 30 MG TABLET PO SCH (22:57)
[2023-12-15] MEDS: MORPHINE SULFATE ER 30 MG TABLET PO SCH ×2 (05:10→05:18)
[2023-12-15] MEDS: PANTOPRAZOLE 40 MG TABLET PO SCH (06:46)
--- NOTE | 2023-12-15 07:42 | P.PN ---
Subjective Progress Note Date: 12/15/23 first postoperative day from a right radical nephrectomy. The patient is having pain as expected as he has a chronic narcotic user due to very bad back issues. His vital signs are stable he's afebrile. he sat in the chair. Objective - Vital Signs Vital signs: Vital Signs Temp 98.5 F 12/15/23 01:13 Pulse 50 L 12/15/23 01:13 Resp 17 12/15/23 01:13 BP 147/80 12/15/23 01:13 Pulse Ox 94 L 12/15/23 01:13 FiO2 Intake & Output 12/14/23 12/15/23 12/15/23 18:59 06:59 18:59 Intake Total 2500 Output Total 1450 1000 Balance 1050 -1000 Weight 68.6 kg 68.6 kg Intake: IV 2500 Output: Urine 450 1000 Estimated Blood Loss 1000 Other: Voiding Method Indwelling Catheter - Genitourinary Genitourinary Comment(s): wound is dry. Abdomen is scaphoid. He has an epidural. Urine output is adequate - Labs CBC & Chem 7: 12/14/23 16:28 Labs: Abnormal Lab Results - Last 24 Hours (Table) 12/14/23 Range/Units 16:28 WBC 18.7 H (3.8-10.6) k/uL Hgb 11.4 L (13.0-17.5) gm/dL Hct 37.9 L (39.0-53.0) % MCV 79.2 L (80.0-100.0) fL MCH 23.8 L (25.0-35.0) pg MCHC 30.0 L (31.0-37.0) g/dL RDW 16.3 H (11.5-15.5) % Neutrophils # 17.6 H (1.3-7.7) k/uL Lymphocytes # 0.6 L (1.0-4.8) k/uL Assessment and Plan Assessment: impression: Postoperative day #1 from right radical nephrectomy. Postoperative pain. Recommendations: We'll continue with epidural. I've added Toradol to his pain regimen. We'll stable on liquids. We'll ambulate. We will continue with the Alva.
[2023-12-15] MEDS: LORATADINE 10 MG TAB PO SCH (08:07)
[2023-12-15] MEDS: KETOROLAC 15 MG/ML 1 ML VIAL IVP SCH (08:07)
[2023-12-15] MEDS: TAMSULOSIN 0.4 MG CAP.ER.24H PO SCH (08:07)
[2023-12-15] MEDS: FLUTICASONE NASAL 50MCG/SPRAY 16GM BTL EA NOSTRIL SCH (08:52)
[2023-12-15 08:53] LABS: Basophils # (A) 0.02 X 10*3/uL (0.00-0.10); Basophils % (A) 0.1 %; Eosinophils # (A) 0 X 10*3/uL (0.04-0.35); Eosinophils % (A) 0 %; HCT 38.1 % (39.6-50.0); HGB 11.7 g/dL (13.0-17.0); Lymphocytes # (A) 1.06 X 10*3/uL (0.90-5.00); Lymphocytes % (A) 7.5 %; MCH 23.5 pg (27.0-32.0); MCHC 30.7 g/dL (32.0-37.0); MCV 76.5 FL (80.0-97.0); Mean Platelet Volume 9.7 FL (9.5-12.2); Monocytes # (A) 1.12 X 10*3/uL (0.20-1.00); Monocytes % (A) 7.9 %; NRBC Per 100 WBC 0 X 10*3/uL (0.00-0.01); Neutrophils # (A) 11.94 X 10*3/uL (1.80-7.70); Platelet Count 337 X 10*3/uL (140-440); RBC 4.98 X 10*6/uL (4.40-5.60); RDW 17.2 % (11.5-14.5); WBC 14.21 X 10*3/uL (4.50-10.00)
[2023-12-15 08:55] LABS: Blood Urea Nitrogen 10.3 mg/dL (9.0-27.0); Carbon Dioxide 22.3 mmol/L (21.6-31.8); Chloride 100 mmol/L (96-109); Glucose 133 mg/dL (70-110); Potassium 4.6 mmol/L (3.5-5.5); Sodium 132 mmol/L (135-145)
--- NOTE | 2023-12-16 10:31 | P.PN ---
Subjective Progress Note Date: 12/16/23 second postoperative day from a right radical nephrectomy. He is feeling better. His pain is less. His vital signs are stable. He is afebrile. Objective - Vital Signs Vital signs: Vital Signs Temp 98.2 F 12/16/23 07:46 Pulse 48 L 12/16/23 07:46 Resp 16 12/16/23 07:46 BP 151/70 12/16/23 07:46 Pulse Ox 95 12/16/23 07:46 FiO2 21 12/15/23 08:39 Intake & Output 12/15/23 12/16/23 12/16/23 18:59 06:59 18:59 Output Total 900 1350 Balance -900 -1350 Output: Urine 900 1350 Uretheral (Alva) 750 Other: Voiding Method Indwelling Catheter Indwelling Catheter - Genitourinary Genitourinary Comment(s): soft and nontender dry incision - Labs CBC & Chem 7: 12/15/23 05:35 12/15/23 05:35 Assessment and Plan Assessment: impression: Status post right radical nephrectomy day #2. Vital signs are stable and afebrile Recommendations: I will advance his diet to regular. I'll discontinue his Alva. He'll probably be discharged next 24-48 hr
--- NOTE | 2023-12-17 07:41 | P.DS ---
Providers Date of admission: 12/14/23 10:27 Attending physician: Tanmay Dill MD Primary care physician: Wanda Fransisco [facility] Hospital Course: patient is a 60-year-old gentleman admitted 12/14/23 for a right radical nephrectomy. He underwent this without problems. He has recuperated nicely. His diet is been advanced appropriately. The catheters been removed continues voiding. His pain is been under control. Wound looks good. His abdomen is soft. His mood his bowels. He is urinating without difficulty. His pathology is pending. He'll be discharged home and follow-up in the office to see next week. He's been given a prescription of portal. Postoperative instructions have been good. His condition is good. Plan - Discharge Summary Discharge Rx Participant: No New Discharge Prescriptions: New Ketorolac [Toradol] 10 mg PO Q6HR PRN #20 tab PRN Reason: Pain No Action Aspirin EC [Ecotrin Low Dose] 81 mg PO DAILY Morphine Sulfate ER [Ms Contin] 30 mg PO Q8H HYDROcodone/APAP 10-325MG [[place] 10-325] 1 tab PO Q6H PRN PRN Reason: Pain Clopidogrel [Plavix] 75 mg PO DAILY #30 tab Nitroglycerin Sl Tabs [Nitrostat] 0.4 mg SUBLINGUAL Q5M PRN #60 tab PRN Reason: Chest Pain lisinopriL [Zestril] 10 mg PO HS Fluticasone Nasal [place] [Flonase Nasal [place]] 2 spray EA NOSTRIL DAILY Tamsulosin HCl [Flomax] 0.4 mg PO QAM Cetirizine HCl [Zyrtec] 10 mg PO DAILY Atorvastatin [Lipitor] 40 mg PO HS Pantoprazole [Protonix] 40 mg PO QAM Discharge Medication List Aspirin EC [Ecotrin Low Dose] 81 mg PO DAILY 06/21/17 [History] HYDROcodone/APAP 10-325MG [[place] 10-325] 1 tab PO Q6H PRN 06/22/17 [History] Morphine Sulfate ER [Ms Contin] 30 mg PO Q8H 06/22/17 [History] Clopidogrel [Plavix] 75 mg PO DAILY #30 tab 06/23/17 [Rx] Nitroglycerin Sl Tabs [Nitrostat] 0.4 mg SUBLINGUAL Q5M PRN #60 tab 06/23/17 [Rx] lisinopriL [Zestril] 10 mg PO HS 09/10/18 [History] Atorvastatin [Lipitor] 40 mg PO HS 12/08/23 [History] Cetirizine HCl [Zyrtec] 10 mg PO DAILY 12/08/23 [History] Fluticasone Nasal [place] [Flonase Nasal [place]] 2 spray EA NOSTRIL DAILY 12/08/23 [History] Pantoprazole [Protonix] 40 mg PO QAM 12/08/23 [History] Tamsulosin HCl [Flomax] 0.4 mg PO QAM 12/08/23 [History] Ketorolac [Toradol] 10 mg PO Q6HR PRN #20 tab 12/17/23 [Rx] Follow up Appointment(s)/Referral(s): Tanmay Dill MD [STAFF PHYSICIAN] - 12/25/23 Discharge Disposition: HOME SELF-CARE
--- NOTE | 2023-12-17 08:53 | P.OP ---
Date of Procedure: 12/14/23 Preoperative Diagnosis: Right renal mass Postoperative Diagnosis: same Procedure(s) Performed: Right open radical nephrectomy Anesthesia: POORNIMAA Surgeon: Tanmay Dill Phy Therapist #1: Jaime Baires Estimated Blood Loss (ml): 1,000 Pathology: other (Right kidney) Condition: stable Disposition: PACU Indications for Procedure: this is a 68-year-old male with history of a 6.8 cm right-sided renal mass, had suspicious finding of possible metastatic disease into the lung, PET scan revealed no evidence of metastatic disease, was evaluated by pulmonology and oncology which deemed the nodules are too small to biopsy. Discussed with him at this time I cannot completely rule out metastatic disease but there is potential that those nodules could be benign. Option of a right sided radical nephrectomy was discussed with him and his in detail, aware of the risk which includes but not limited to bleeding, infection, injury to nearby organs. Discussed also with him the risk of needing hemodialysis in the short and long- term. Discussed with him if he does indeed have metastatic disease and this will not be a curative surgery, discussed even if he does not have metastatic disease there is potential of cancer recurrence and potential of the need for additional treatments. Risk of anesthesia was discussed with him in detail, aware he is aware he is at a higher risk of medical complication given his "heart disease and COPD. He understood all the risk and agreed to proceed with right-sided radical nephrectomy Operative Findings: Large right-sided renal mass, duodenum is fairly adherent to the kidney, the mass was draping over the hilum and was fairly stuck which made the hilar dissection very challenging Description of Procedure: The patient was taken to the operating room and placed in the supine position. After being given general anesthesia, the abdomen was prepped and draped sterilely. A right-sided chevron incision was made using the scalpel. The Bovie electrocautery was used to incise the subcutaneous tissues and muscular layers of the abdominal wall down to the peritoneum. The peritoneum was then carefully entered, and opened the full length of the incision. The abdomen was examined, and no abnormalities were noted other than the renal mass. Specifically, there was no evidence of malignancy elsewhere within the abdomen. The Bookwalter retractor was used for exposure. The peritoneum was incised at the line of Toldt, at this point the colon was mobilized. The duodenum was visualized at this time, the duodenum was fairly adherent at the level of the renal mass, at this point the duodenum was kocherized initially more inferiorly, and was further mobilized sharply at the level of the renal mass. There was no injury to the duodenum during the mobilization. After the duodenum was completely mobilized I was able to visualize right kidney and the inferior vena cava. The tumor was draping over the renal vein, the vein was not visualized, and the tumor was fairly adherent at that level. At this point decision was made to further mobilize the kidney inferiorly and followed up to the level of the renal vein. The gonadal vein was isolated. It was then ligated using 2-0 silk ties and divided. Dissection was then performed alongside the lateral aspect of the inferior vena cava. At this point at the level of the hilum I was still not able to visualize the renal vein given the degree of the adherence of the tumor. At this point the kidney was further mobilized laterally, and the posterior aspect of the kidney was mobilized completely, this point the kidney was mobilized off of the psoas muscle. Dissection was further carried superiorly at the adrenal was mobilized off of the kidney, during the mobilization the adrenal vein was detached from t he vena cava, there was evidence of venous bleeding at that level. At this point the area of bleeding along the vena cava was ligated using four 4-0 Prolene in running fashion, this point there was no evidence of bleeding. Once the adrenal was completely mobilized at this point we were able to visualize the renal artery, the renal artery was ligated using 2-0 silk ties.the renal artery was then divided. The remaining hilar tissue was further divided, it was still very difficult to clearly visualize the vein, but at this point using sharp sharp dissection the tumor was further mobilized laterally at this point the vein as it coming off of the vena cava could be visualized. At this point I further dissected around the vein posteriorly and further anteriorly of note the with there was no surgical plane anteriorly during dissection. After mobilizing off of the renal vein I was able to place silk ties and divided the vein. The hilar tissue was further divided, The remaining hilar tissues were clipped and divided at this time. Once the hilar dissection had been completed, the inferior aspect of the dissection was performed. The tail of Gerota's fascia was isolated, and the ureter was clipped and divided. At this point some bleeding was noticed at the level of the vena cava, this was controlled by placing an Allis at it at this time. Once all attachments were divided, the sp ecimen was removed. At this point attention was carried to the caval bleeding, this was well-controlled using 4-0 Prolene. The surgical field was examined for hemostasis. Hemostatic agents were placed over the vena cava repair. . Hemostasis within the entire surgical field was excellent at this time. The renal bed was irrigated with warm sterile water. The Bookwalter retractor was removed. The abdominal contents were allowed to return to their normal location. Each individual muscle layer of the anterior abdominal wall was closed using #1 Vicryl suture in a running fashion. Hemostasis within the subcutaneous tissues was excellent. The skin was closed using alyce. A sterile gauze dressing was applied over the incision. All sponge and needle counts were correct. The patient tolerated the procedure well was taken to the recovery room in stable condition. Given the complexity of this case secondary to the hilar dissection hilar dissection, a modifier 22 will be applied
[2023-12-17 10:12] VITALS: BP 148/67; PULSE 51; RESP 18; TEMP 98.2
--- NOTE | 2024-01-01 13:34 | CDI ---
Documentation Clarification Form Date: 01/01/2024 01:16:49 PM From: Enedelia Escobedo Admit Date: 12/14/2023 10:27:00 AM Patient Name: Luis Astudillo Visit Number: [id number] Discharge Date: 12/17/2023 11:20:00 AM ATTENTION: The Clinical Documentation Specialists (CDI) and [facility] Coding Staff appreciate your assistance in clarifying documentation. Please respond to the clarification below the line at the bottom and electronically sign. The CDI & [facility] Coding staff will review the response and follow-up if needed. Please note: Queries are made part of the Legal Health Record. If you have any questions, please contact the author of this message via ITS. Doctor/Provider: Tanmay Dill The final diagnosis of the pathology report states positive result. Coding guidelines do not allow coding professionals to code based on pathology results; therefore, clarification is requested. History/risk factors: patient is a 68 year old male with a history of a 6.8cm right sided renal mass, with suspicious findings of possible metastatic disease in to the lung. Pet scan revealed no evidence of metastatic disease, was evaluated by pulmonology and oncology which deemed the nodules are too small to biopsy. Metastatic disease cannot be completely ruled out. Patient also has a history of CAD, COPD, HLD, HTN and history of NH. Clinical Indicators: pathology report indicated there is a positive result. 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 Margins: tumor involves the hilar soft tissue margin. Other margins negative. Regional Lymph Nodes: Not applicable. One possible lymph node Treatment: patient underwent a right sided radical nephrectomy and followed up in the office 1 week post op. Please clarify if you agree with the pathology report diagnosis of clear cell renal cell carcinoma and indicate if there is possible lymph node involvement. [X ] Clear cell renal cell carcinoma [ ] Clear cell renal cell carcinoma with metastasis to the lymph nodes [ ] No [ ] Other (please specify) [ ] Unable to determine MTDD
== END 2023-12-17 11:20 | disposition home or self-care (01) | DRG 658 ==
LOC: 2ORMAIN 10:27 → 4SSUR 18:26
PROVIDERS: ADMIT Urology; ATTEND Urology
PROC: 0TT00ZZ Resection of Right Kidney, Open Approach (ICD-10-PCS; principal; 2023-12-14 12:30)
DX: C64.1 Malignant neoplasm of right kidney, except renal pelvis (principal); I25.10 Atherosclerotic heart disease of native coronary artery without angina pectoris; I10 Essential (primary) hypertension; E78.5 Hyperlipidemia, unspecified; J44.9 Chronic obstructive pulmonary disease, unspecified; F17.210 Nicotine dependence, cigarettes, uncomplicated; G89.29 Other chronic pain; M54.30 Sciatica, unspecified side; Z79.02 Long term (current) use of antithrombotics/antiplatelets; Z95.5 Presence of coronary angioplasty implant and graft; Z79.899 Other long term (current) drug therapy; Z79.82 Long term (current) use of aspirin; I25.2 Old myocardial infarction; Z79.891 Long term (current) use of opiate analgesic
CPT/HCPCS: 80048; 85025; 88307; 94760

== ENCOUNTER → 2024-02-18 | Outpatient (CLI) | payer MEDICARE ==
--- NOTE | 2024-02-20 21:29 | PE ---
EXAMINATION TYPE: PET CT fusion skull to thigh DATE OF EXAM: 02/18/2024 CLINICAL INDICATION:Male, 68 years old with history of C64.1 KIDNEY CANCER; TECHNIQUE: Following the intravenous administration of 10.61 mCi of F-18 FDG, whole body images are performed from the skull base to the midthigh. Images are reviewed on the computer in the coronal, axial, and sagittal planes. Reconstructed rotating images are created on independent workstation and reviewed on the computer. A non-contrast CT is performed in conjunction with the PET scan. Glucose level 102 mg/dL CT DLP: 348.73 mGycm, Automated exposure control for dose reduction was used. COMPARISON: CT 09/29/2023, 09/02/2023, PET/CT None, MRI: 09/29/2023 FINDINGS: Mediastinal SUV mean is 2.1. Hepatic parenchyma SUV mean is 3.7. SKULL BASE AND NECK: No suspicious radiotracer activity. Symmetric physiologic uptake within the vocal cords. CHEST, MEDIASTINUM, AND HILAR REGION: Few stable scattered pulmonary nodules largest within the right lung base measuring up to 1.4 cm. Non e demonstrate FDG activity above background. Left hilar lymph node is redemonstrated measuring 2.1 cm with a maximum SUV of 3.7. ABDOMEN AND PELVIS: No suspicious radiotracer activity. Postsurgical changes from right nephrectomy. No suspicious FDG activity within the nephrectomy bed. MUSCULOSKELETAL STRUCTURES: No suspicious radiotracer activity. OTHER CT: Postsurgical changes from left enucleation with prosthetic identified. Bilateral carotid bu lb calcifications. Atherosclerotic calcific calcification of the aorta and its branches. Moderate-to- severe coronary calcifications. Tiny fat filled umbilical hernia. Coarse prostate calcifications. Mil d paraseptal emphysematous changes. Complete opacification right mastoid air cells. Clinically correl ate for mastoiditis. Multilevel degenerative disc disease. IMPRESSION: 1. Postoperative changes from right nephrectomy without suspicious lesion or FDG activity within the nephrectomy bed to suggest local recurrence. 2. Left hilar lymph node is redemonstrated demonstrating mild FDG activity above background. This is suspicious for metastasis especially due to its abnormal enhancement pattern on prior CT chest. 3. Several scattered pulmonary nodules redemonstrated with FDG activity below background. Many of th kennedi are too small for PET/CT sensitivity. These are still suspicious for possible metastasis since re nal cell cancer is not always FDG active. Continued surveillance is recommended. [facility], , 02/20/2024 9:27 PM
== END | disposition home or self-care (01) ==
LOC: RADPETMAIN 12:37
PROVIDERS: ATTEND Internal Medicine Hematology & Oncology
DX: C64.1 Malignant neoplasm of right kidney, except renal pelvis (principal); R91.8 Other nonspecific abnormal finding of lung field; H70.91 Unspecified mastoiditis, right ear; K42.9 Umbilical hernia without obstruction or gangrene; I70.0 Atherosclerosis of aorta; Z90.5 Acquired absence of kidney
CPT/HCPCS: 78815; A9552

== ENCOUNTER → 2024-07-22 | Outpatient (CLI) | payer OTHER ==
--- NOTE | 2024-07-23 15:49 | PE ---
EXAMINATION TYPE: PET CT fusion skull to thigh DATE OF EXAM: 07/22/2024 COMPARISON: No recent pertinent CT Prior PET/CT: 02/18/2024 CLINICAL INDICATION: Male, 69 years old with history of R91.1 SPN, renal cancer TECHNIQUE: Following the intravenous administration of 9.27 mCi of F-18 FDG, whole body images are p erformed PET CT fusion skull to thigh. Images are reviewed on the computer in the coronal, axial, an d sagittal planes. Reconstructed rotating images are created on independent workstation and reviewed on the computer. A localization and attenuation correction CT is performed in conjunction with the PET scan. DLP: 531.46 mGycm SCAN: Reported as initial Blood glucose: 113 mg/dL Average Mediastinum SUV: 2.18 Average Liver SUV: 2.86 FINDINGS: NECK: There is asymmetric uptake within the right vocal cord with an SUV of 5.88. Direct visualizati on recommended. THORAX: There is increased uptake within the left perihilar region, image 23, SUV 3.04. There is mild diffuse uptake within the more posterior left hilar region, example image 104, SUV 4.59 . There is faint uptake within the posterior left upper lung field, image 88, SUV 2.1. There is some u ptake within the posterior left midlung, image 105. This may be inflammatory in nature measuring SUV 1.9. Some additional subtle posterior lateral uptake is in the mid lung, image 110, SUV 2.18. There i s uptake within the mid posterior lower right lung field image 127, SUV 2.14. Intermediate uptake is within the nodule posterior right costal phrenic sulcus, image 142, SUV 2.14. No suspicious uptake in the nodule anterior right upper lung field image 92. SUV 0.9. No suspicious u ptake peripheral right mid lateral lung nodule, image 120, SUV 0.83. ABDOMEN: No suspicious uptake PELVIS: There is some vague asymmetric uptake within the lower inferior prostate, image 248, SUV 3.55 . Correlate with PSA. OSSEOUS STRUCTURES: No abnormal uptake LOCALIZATION CT: Mild uptake posterior left upper lung field correlates with the nodule. No right re nal bed recurrent mass is evident COMPARISON: Asymmetric uptake within the right vocal cord was present previously. Prostate uptake may be a change. Scattered tiny nodules have a similar appearance to comparison. IMPRESSION: 1. Couple areas of mild increased uptake left perihilar and posterior hilar regions. This is above ba ckground and new from comparison. Consider bronchoscopy. 2. Lung nodules appear more intermediate signal suggesting inflammatory change more likely within the differential. These were present previously. However, these are very small early metastasis cannot b e excluded. 3. Asymmetric uptake right vocal cord. Direct visualization recommended. This was however, present pr eviously. 4. There may be some new asymmetric uptake inferior left lateral prostate. Correlate with PSA. [facility], , 07/23/2024 3:46 PM
== END | disposition home or self-care (01) ==
LOC: RADPETMAIN 09:39
PROVIDERS: ATTEND Internal Medicine Hematology & Oncology
DX: R91.8 Other nonspecific abnormal finding of lung field (principal); R91.1 Solitary pulmonary nodule
CPT/HCPCS: 78815; A9552